=== PATIENT | male | born 1985 | race Caucasian/White ===

== ENCOUNTER 2016-06-26 16:15 | Emergency (ER) | payer MEDICAID | END 2016-06-26 20:55 | disposition home or self-care (01) | LOC: D.ER 16:15 | DX: F07.81 Postconcussional syndrome (principal); S16.1XXA Strain of muscle, fascia and tendon at neck level, initial encounter; Y04.2XXA Assault by strike against or bumped into by another person, initial encounter; Y93.89 Activity, other specified; Y92.89 Other specified places as the place of occurrence of the external cause; F41.9 Anxiety disorder, unspecified; F25.9 Schizoaffective disorder, unspecified; F31.9 Bipolar disorder, unspecified; F44.81 Dissociative identity disorder; F42.9 Obsessive-compulsive disorder, unspecified; F43.10 Post-traumatic stress disorder, unspecified ==

== ENCOUNTER 2016-07-16 11:59 | Day surgery (SDC) | payer MEDICAID ==
[~2016-07-16] VITALS: Ht 177.8 cm; Wt 70.5 kg
[2016-07-16] MEDS ORDERED: DESMOPRESSIN A0.1 MG PO (13:36)
[2016-07-16] MEDS ORDERED: NEURONTIN 300300 MG (13:36)
[2016-07-16 13:37] LABS: HEMATOCRIT 44.2 % (42.0-54.0); HEMOGLOBIN 14.4 g/dL (13.5-17.5); MCH 30.6 pg (26.0-34.0); MCHC 32.6 g/dL (31.0-37.0); MEAN PLATELET VOLUME 9.9 fL (7.4-10.4); RBC 4.7 10x6/uL (4.20-6.10); RDW 13.1 % (11.5-14.5); WBC 5.8 10x3/uL (4.8-10.8)
[2016-07-16] MEDS ORDERED: REXULTI1 MG PO (13:37)
[2016-07-16] MEDS ORDERED: TOPAMAX25 MG PO (13:37)
[2016-07-16] MEDS ORDERED: REMERON30 MG PO (13:37)
[2016-07-16] MEDS ORDERED: LAMICTAL25 MG PO (13:38)
[2016-07-16 13:58] VITALS: BP 108/67; Ht 177.8 cm; Wt 70.5 kg
--- NOTE | 2016-07-16 15:18 | NUR ---
1330 PATIENT STATES DOES NOT FEEL WELL, STATES PROBLEMS WITH LOW BLLOD SUGAR SOMETIMES,IV STARTED AND BLOOD SUGAR CHECKED. BLOOD SUGAR AT 85, REPORTED TO ANESTHESIA WITHOUT ORDERS NOTED. LR INFUSING . 1345 PATIENT STATES FEELS BETTER NOW. INFORMED ANESTHESIA THAT PT STATES DRANK 1/[address] SARAVIA AT 11AM. TO HOLD PATIENT FOR EGD TILL 4HOURS. INFORMED PATIENT. HE IS RESTING NOW. FEELING BETTER. 1430 CHECKED ON PATIENT HE STATES FEELS OK. 1500 PATIENT CALLED OUT STATES THAT HE FEELS FUNNY. STATES THINKS BLOOD SUGAR LOW. CHECK IT IS 95%. BP IS OKAY AND TEMP IN ROOM IS HIGH, DECREASED AND WILL MONITOR PATIENT.
--- NOTE | 2016-07-16 17:00 | NUR ---
1700--IV DC'D, PT UP TO DRESS AT THIS TIME. PAOLA HATHAWAY
--- NOTE | 2016-07-16 17:24 | NUR ---
1710--DISCHARGE INSTRUCTIONS GIVEN, PT VERBALIZES UNDERSTANDING. PT OFF UNIT VIA AGNES. PAOLA HATHAWAY
--- NOTE | 2016-07-17 12:18 | OP ---
PATIENT NAME: BUTCH CHEUNG MEDICAL RECORD: [id number] :81 LOCATION:[facility] ADMISSION DATE: SURGEON: JONNY DE SOUZA DO DATE OF OPERATION: 07/16/2016 PROCEDURE: EGD with biopsies. INDICATIONS FOR PROCEDURE: Epigastric abdominal pain, diarrhea, heartburn, nausea and vomiting. SCOPE: [employer] video gastroscope. MEDICATIONS: Propofol 150 mg IV per anesthesia. ESTIMATED BLOOD LOSS: Minimal. FINDINGS: Informed consent was given. The patient was made comfortable with the above medication. After reaching an adequate level of sedation by slow IV push, the patient was placed on his left side. The scope was advanced under direct visualization through the mouth to the second portion of the duodenum. The upper, middle, and distal thirds of the esophagus appeared normal. At the GE junction, there was evidence of moderate LA class B reflux induced esophagitis. Scope was advanced through the GE junction and retroflexed to view the cardia which appeared normal. The fundus and body of the stomach appeared normal. In the antrum and prepyloric region, there was erythema and granularity consistent with possible gastritis. Multiple random biopsies were taken to submit for histology and to rule out H. pylori. The endoscope was advanced through the pylorus into the duodenum where the bulb and second portion of the duodenum appeared normal. Random biopsies were taken in both the bulb and second portion of the duodenum to submit for histology. The scope was then withdrawn from the patient. The patient tolerated the procedure well and there were no complications. ESTIMATED BLOOD LOSS: Minimal. IMPRESSION: 1. Moderate LA class B reflux induced esophagitis. 2. Erythema and granularity of the stomach consistent with gastritis with biopsies taken. 3. Normal duodenum. Biopsies taken. PLAN AND RECOMMENDATIONS: 1. Discharge home when recovery parameters are met. 2. Continue current diet. 3. Continue current medications. 4. Trial of Protonix 40 mg daily in the a.m. for 8 weeks. 5. We will monitor for symptom changes and respond with medications. 6. Follow up biopsy specimen results. 7. Follow up in GI clinic as needed. TRANSINT:[id number] Voice Confirmation ID: [id number] DOCUMENT ID: [id number] OPERATIVE REPORT [id number] BUTCH CHEUNG JONNY DE SOUZA DO at 9037 CC: [id number] DICTATION DATE: 07/16/16 1615 PREVENTIVE MEDICINE OFFICER: 07/17/16 0036 [facility] 07/16/16 [place] [id number] [place] [id number]
== END 2016-07-16 17:10 | disposition home or self-care (01) ==
LOC: D.OPS 11:59
PROVIDERS: Anesthesiology
DX: R10.13 Epigastric pain (principal); R19.7 Diarrhea, unspecified; R11.2 Nausea with vomiting, unspecified; K21.0 Gastro-esophageal reflux disease with esophagitis; F17.200 Nicotine dependence, unspecified, uncomplicated; J45.909 Unspecified asthma, uncomplicated; K21.9 Gastro-esophageal reflux disease without esophagitis; Z01.812 Encounter for preprocedural laboratory examination

== ENCOUNTER 2016-11-22 09:18 | Emergency (ER) | payer MEDICAID | END 2016-11-22 12:37 | disposition home or self-care (01) | LOC: D.ER 09:18 | DX: R53.1 Weakness (principal); R10.9 Unspecified abdominal pain; E87.6 Hypokalemia; E87.0 Hyperosmolality and hypernatremia; F42.9 Obsessive-compulsive disorder, unspecified; F43.10 Post-traumatic stress disorder, unspecified; Z86.59 Personal history of other mental and behavioral disorders; F17.200 Nicotine dependence, unspecified, uncomplicated ==

== ENCOUNTER 2016-11-23 15:34 | Emergency (ER) | payer MEDICAID | END 2016-11-23 18:20 | disposition home or self-care (01) | LOC: D.ER 15:34 | DX: E86.0 Dehydration (principal); R55 Syncope and collapse; Z86.59 Personal history of other mental and behavioral disorders ==

== ENCOUNTER 2016-11-24 09:01 | Emergency (ER) | payer MEDICAID | END 2016-11-24 12:24 | disposition home or self-care (01) | LOC: D.ER 09:01 | DX: R56.9 Unspecified convulsions (principal) ==

== ENCOUNTER 2016-11-26 18:51 | Emergency (ER) | payer MEDICAID ==
[2016-07-16 13:58] VITALS: BMI 22.2
[~2016-11-26 18:51] MED LIST: DESMOPRESSIN A0.1 MG PO; LAMICTAL25 MG PO; NEURONTIN 300300 MG; REMERON30 MG PO; REXULTI1 MG PO; TOPAMAX25 MG PO
== END 2016-11-26 23:44 | disposition home or self-care (01) ==
LOC: D.ER 18:51
DX: F41.9 Anxiety disorder, unspecified (principal); Z86.59 Personal history of other mental and behavioral disorders; Z86.69 Personal history of other diseases of the nervous system and sense organs; F17.200 Nicotine dependence, unspecified, uncomplicated

== ENCOUNTER 2016-12-02 09:13 | Emergency (ER) | payer MEDICAID ==
[2016-07-16 13:58] VITALS: BMI 22.2
[2016-12-02 09:48] LABS: BASOPHILS 0.3 % (0-2); HEMATOCRIT 44.6 % (42.0-54.0); HEMOGLOBIN 15.1 g/dL (13.5-17.5); IMMATURE GRANULOCYTES 0.2 % (0-5); LYMPHOCYTES 18.5 % (15-50); MCH 30.8 pg (26.0-34.0); MCHC 33.9 g/dL (31.0-37.0); MEAN PLATELET VOLUME 9.1 fL (7.4-10.4); MONOCYTES 5.6 % (2-11); NEUTROPHILS 73.4 % (40-80); PLATELET COUNT 207 10x3/uL (130-400); RDW 13.9 % (11.5-14.5); WBC 6.6 10x3/uL (4.8-10.8)
[2016-12-02 10:01] LABS: UDS - AMPHET NEGATIVE QUAL (NEGATIVE); UDS - BARB NEGATIVE QUAL (NEGATIVE); UDS - BENZO NEGATIVE QUAL (NEGATIVE); UDS - COCAINE NEGATIVE QUAL (NEGATIVE); UDS - METH NEGATIVE QUAL (NEGATIVE); UDS - OPIATE NEGATIVE QUAL (NEGATIVE); UDS - PCP NEGATIVE QUAL (NEGATIVE); UDS - THC NEGATIVE QUAL (NEGATIVE)
[2016-12-02 10:09] LABS: ALBUMIN 4.3 g/dL (3.4-5.0); ANION GAP 12.4 mmol/L (8-16); BILIRUBIN - TOTAL 0.26 mg/dL (0.2-1.3); CARBON DIOXIDE 25.5 mmol/L (21.0-32.0); CREATININE - SERUM 1.2 mg/dL (0.6-1.3); POTASSIUM - SERUM 3.9 mmol/L (3.5-5.1); PROTEIN - SERUM 7.7 g/dL (6.4-8.2)
[2016-12-02 10:10] LABS: APPEARANCE HAZY (CLEAR); COLOR YELLOW (YELLOW); SPECIFIC GRAVITY 1.005 (1.005-1.020)
[2016-12-02 10:11] LABS: BILIRUBIN NEGATIVE (NEGATIVE); GLUCOSE NEGATIVE (NEGATIVE); KETONE NEGATIVE (NEGATIVE); LEUKOCYTE ESTERASE NEGATIVE (NEGATIVE); NITRITE NEGATIVE (NEGATIVE); PROTEIN NEGATIVE (NEGATIVE); UROBILINOGEN NORMAL (NORMAL)
== END 2016-12-02 11:20 | disposition home or self-care (01) ==
LOC: D.ER 09:13
PROVIDERS: Emergency Medicine
DX: R56.9 Unspecified convulsions (principal); F17.200 Nicotine dependence, unspecified, uncomplicated

== ENCOUNTER 2016-12-03 06:04 | Emergency (ER) | payer MEDICAID ==
[2016-07-16 13:58] VITALS: BMI 22.2
[2016-12-03 06:29] LABS: BASOPHILS 0.5 % (0-2); EOSINOPHILS 3.1 % (0-7); HEMATOCRIT 45.6 % (42.0-54.0); HEMOGLOBIN 15.4 g/dL (13.5-17.5); IMMATURE GRANULOCYTES 0.2 % (0-5); LYMPHOCYTES 31.8 % (15-50); MCH 30.6 pg (26.0-34.0); MCHC 33.8 g/dL (31.0-37.0); MCV 90.5 fL (80.0-100.0); MEAN PLATELET VOLUME 8.9 fL (7.4-10.4); MONOCYTES 10.6 % (2-11); NEUTROPHILS 53.8 % (40-80); PLATELET COUNT 216 10x3/uL (130-400); RBC 5.04 10x6/uL (4.20-6.10); WBC 5.9 10x3/uL (4.8-10.8)
[2016-12-03 06:37] LABS: APPEARANCE CLEAR (CLEAR); BILIRUBIN NEGATIVE (NEGATIVE); COLOR DK YELLOW (YELLOW); GLUCOSE NEGATIVE (NEGATIVE); KETONE NEGATIVE (NEGATIVE); LEUKOCYTE ESTERASE NEGATIVE (NEGATIVE); NITRITE NEGATIVE (NEGATIVE); PROTEIN NEGATIVE (NEGATIVE); SPECIFIC GRAVITY 1.025 (1.005-1.020); UROBILINOGEN NORMAL (NORMAL)
[2016-12-03 06:39] LABS: UDS - AMPHET NEGATIVE QUAL (NEGATIVE); UDS - BARB NEGATIVE QUAL (NEGATIVE); UDS - BENZO NEGATIVE QUAL (NEGATIVE); UDS - COCAINE NEGATIVE QUAL (NEGATIVE); UDS - METH NEGATIVE QUAL (NEGATIVE); UDS - OPIATE NEGATIVE QUAL (NEGATIVE); UDS - PCP NEGATIVE QUAL (NEGATIVE); UDS - THC NEGATIVE QUAL (NEGATIVE)
[2016-12-03 06:47] LABS: ALBUMIN 4.4 g/dL (3.4-5.0); ANION GAP 15.8 mmol/L (8-16); BILIRUBIN - TOTAL 0.51 mg/dL (0.2-1.3); CALCIUM 9.3 mg/dL (8.5-10.1); CARBON DIOXIDE 22.6 mmol/L (21.0-32.0); CREATININE - SERUM 1.2 mg/dL (0.6-1.3); POTASSIUM - SERUM 3.4 mmol/L (3.5-5.1); PROTEIN - SERUM 7.7 g/dL (6.4-8.2)
== END 2016-12-03 08:04 | disposition home or self-care (01) ==
LOC: D.ER 06:04
PROVIDERS: Family Medicine
DX: R56.9 Unspecified convulsions (principal); F17.200 Nicotine dependence, unspecified, uncomplicated

== ENCOUNTER 2016-12-03 22:43 | Emergency (ER) | payer MEDICAID ==
[2016-07-16 13:58] VITALS: BMI 22.2
== END 2016-12-04 03:09 | disposition home or self-care (01) ==
LOC: D.ER 22:43
DX: F41.9 Anxiety disorder, unspecified (principal); F41.0 Panic disorder [episodic paroxysmal anxiety]; G40.909 Epilepsy, unspecified, not intractable, without status epilepticus; F42.9 Obsessive-compulsive disorder, unspecified; F17.200 Nicotine dependence, unspecified, uncomplicated

== ENCOUNTER 2016-12-07 17:01 | Emergency (ER) | payer MEDICAID ==
[2016-07-16 13:58] VITALS: BMI 22.2
== END 2016-12-07 17:52 | disposition home or self-care (01) ==
LOC: D.ER 17:01
DX: Z03.89 Encounter for observation for other suspected diseases and conditions ruled out (principal)

== ENCOUNTER → 2016-12-10 07:17 | Outpatient (CLI) | payer MEDICAID ==
[2016-07-16 13:58] VITALS: BMI 22.2
[~2016-12-10 07:17] MED LIST changes: +ABILIFY10 MG PO; +ATARAX 25 MG TA25 MG PO; +BENZTROPINE MESY1 MG PO; +PAXIL20 MG PO; +SEROQUEL300 MG PO
== END | disposition home or self-care (01) ==
LOC: D.RAD 11-21 08:00
DX: R10.13 Epigastric pain (principal); R11.2 Nausea with vomiting, unspecified

== ENCOUNTER 2016-12-10 19:16 | Emergency (ER) | payer MEDICAID ==
[2016-07-16 13:58] VITALS: BMI 22.2
[~2016-12-10 19:16] MED LIST changes: -ABILIFY10 MG PO; -ATARAX 25 MG TA25 MG PO; -BENZTROPINE MESY1 MG PO; -PAXIL20 MG PO; -SEROQUEL300 MG PO
[2016-12-10 20:25] LABS: UDS - AMPHET NEGATIVE QUAL (NEGATIVE); UDS - BARB NEGATIVE QUAL (NEGATIVE); UDS - BENZO NEGATIVE QUAL (NEGATIVE); UDS - COCAINE NEGATIVE QUAL (NEGATIVE); UDS - OPIATE NEGATIVE QUAL (NEGATIVE); UDS - PCP NEGATIVE QUAL (NEGATIVE); UDS - THC POSITIVE QUAL (NEGATIVE)
== END 2016-12-10 23:09 | disposition home or self-care (01) ==
LOC: D.ER 19:16
PROVIDERS: Emergency Medicine
DX: F41.9 Anxiety disorder, unspecified (principal); F17.200 Nicotine dependence, unspecified, uncomplicated

== ENCOUNTER → 2016-12-18 12:35 | Outpatient (CLI) | payer MEDICAID ==
[2016-07-16 13:58] VITALS: BMI 22.2
[~2016-12-18 12:35] MED LIST changes: +ABILIFY10 MG PO; +ATARAX 25 MG TA25 MG PO; +BENZTROPINE MESY1 MG PO; +PAXIL20 MG PO; +SEROQUEL300 MG PO
== END | disposition home or self-care (01) ==
LOC: D.NM 11-24 14:30
DX: R12 Heartburn (principal); R11.2 Nausea with vomiting, unspecified; R10.9 Unspecified abdominal pain

== ENCOUNTER 2016-12-22 10:32 | Day surgery (SDC) | payer MEDICAID ==
[~2016-12-22 10:32] MED LIST changes: -ABILIFY10 MG PO; -ATARAX 25 MG TA25 MG PO; -BENZTROPINE MESY1 MG PO; -PAXIL20 MG PO; -SEROQUEL300 MG PO
[2016-12-22 11:34] VITALS: BP 99/62; BMI 21.5
[2016-12-22] MEDS ORDERED: BENZTROPINE MESY1 MG PO (11:46)
[2016-12-22] MEDS ORDERED: SEROQUEL300 MG PO (11:48)
[2016-12-22] MEDS ORDERED: ABILIFY10 MG PO (11:48)
[2016-12-22] MEDS ORDERED: PAXIL20 MG PO (11:49)
[2016-12-22] MEDS ORDERED: ATARAX 25 MG TA25 MG PO (11:49)
[2016-12-22 12:24] LABS: BASOPHILS 0.6 % (0-2); EOSINOPHILS 4.3 % (0-7); HEMATOCRIT 46.6 % (42.0-54.0); HEMOGLOBIN 15.4 g/dL (13.5-17.5); LYMPHOCYTES 33.7 % (15-50); MCH 30.1 pg (26.0-34.0); MCV 91.2 fL (80.0-100.0); MEAN PLATELET VOLUME 9.4 fL (7.4-10.4); MONOCYTES 6.9 % (2-11); NEUTROPHILS 54.5 % (40-80); PLATELET COUNT 253 10x3/uL (130-400); RBC 5.11 10x6/uL (4.20-6.10); RDW 13.4 % (11.5-14.5); WBC 3.5 10x3/uL (4.8-10.8)
[2016-12-22 12:41] LABS: ANION GAP 17.3 mmol/L (8-16); CALCIUM 9.5 mg/dL (8.5-10.1); CARBON DIOXIDE 24.6 mmol/L (21.0-32.0); CREATININE - SERUM 1.2 mg/dL (0.6-1.3); POTASSIUM - SERUM 3.9 mmol/L (3.5-5.1)
--- NOTE | 2016-12-22 14:48 | NUR ---
PT TOLERATED FULL LIQ DIET. PASSING FLATUS.
--- NOTE | 2016-12-22 14:57 | NUR ---
IV D/C'D CATH INTACT.
--- NOTE | 2016-12-22 15:14 | NUR ---
D/C INSTRUCTIONS GIVEN TO PT. COPIES OF ALL GIVEN. D/C'D AMBULATORY ACCOMPANIED BY STAFF, TO PRIVATE CAR.
--- NOTE | 2016-12-24 14:40 | OP ---
PATIENT NAME: BUTCH CHEUNG MEDICAL RECORD: [id number] :81 [facility] DATE: SURGEON: JONNY DE SOUZA DO DATE OF OPERATION: 12/22/2016 PROCEDURE: Colonoscopy. INDICATIONS FOR PROCEDURE: Abdominal pain which is generalized, generalized abdominal swelling, and change in bowel habits. SCOPE: Olympus video pediatric colonoscope. MEDICATIONS: Propofol 400 mg IV per anesthesia. WITHDRAWAL TIME: 7 minutes. ESTIMATED BLOOD LOSS: None. COMPLICATIONS: None. FINDINGS: Informed consent was given. The patient was made comfortable with the above medication. After reaching an adequate level of sedation by slow IV push, the patient was placed on his left side. A digital rectal examination was performed and was normal. The endoscope was then advanced under direct visualization through the rectum to the terminal ileum. The scope was slowly withdrawn and mucosa was carefully examined. Prep quality was excellent. There were no polyps, other lesions, or diverticula visualized on this examination. Retroflexion was performed in the rectum with a normal-appearing rectal wall. The scope was withdrawn from the patient. The patient tolerated the procedure well. There were no complications. IMPRESSION: Normal colonoscopy to terminal ileum. PLAN AND RECOMMENDATIONS: 1. Discharge home when recovery parameters are met. 2. Recall colonoscopy at age 48 for screening purposes. 3. Trial of Reglan 5 mg a.c. and at bedtime for severe gastroparesis. 4. Two tablespoons of Metamucil supplement daily to maintain more regular bowel movements. 5. Follow up in GI clinic as needed. TRANSINT:[id number] Voice Confirmation ID: [id number] DOCUMENT ID: [id number] JONNY DE SOUZA DO at 1440 CC: [id number] DICTATION DATE: 12/22/16 1400 MATERIAL HANDLER 1ST SHIFT: 12/22/16 1420 [facility] 12/22/16 [place] [id number] [place] [id number]
== END 2016-12-22 15:19 | disposition home or self-care (01) ==
LOC: D.OPS 10:32
PROVIDERS: Anesthesiology
DX: R10.84 Generalized abdominal pain (principal); R19.4 Change in bowel habit; F17.200 Nicotine dependence, unspecified, uncomplicated; J45.909 Unspecified asthma, uncomplicated; Z01.812 Encounter for preprocedural laboratory examination

== ENCOUNTER 2016-12-23 12:31 | Emergency (ER) | payer MEDICAID ==
[2016-12-22 11:34] VITALS: BMI 21.5
[~2016-12-23 12:31] MED LIST changes: +ABILIFY10 MG PO; +ATARAX 25 MG TA25 MG PO; +BENZTROPINE MESY1 MG PO; +PAXIL20 MG PO; +SEROQUEL300 MG PO
[2016-12-23 14:03] LABS: BASOPHILS 0.8 % (0-2); EOSINOPHILS 3.9 % (0-7); HEMATOCRIT 41.6 % (42.0-54.0); HEMOGLOBIN 13.8 g/dL (13.5-17.5); LYMPHOCYTES 30.7 % (15-50); MCH 30.1 pg (26.0-34.0); MCHC 33.2 g/dL (31.0-37.0); MCV 90.8 fL (80.0-100.0); MEAN PLATELET VOLUME 8.9 fL (7.4-10.4); MONOCYTES 5.7 % (2-11); NEUTROPHILS 58.9 % (40-80); PLATELET COUNT 207 10x3/uL (130-400); RBC 4.58 10x6/uL (4.20-6.10); RDW 13.4 % (11.5-14.5); WBC 3.8 10x3/uL (4.8-10.8)
[2016-12-23 14:20] LABS: ALBUMIN 3.9 g/dL (3.4-5.0); ALKALINE PHOSPHATASE 89 U/L (46-116); ALT (SGPT) 19 U/L (10-68); AMYLASE - SERUM 84 U/L (25-115); BILIRUBIN - TOTAL 0.44 mg/dL (0.2-1.3); CALC OSMOLALITY 284 mosm/kg (275-300); CALCIUM 8.9 mg/dL (8.5-10.1); CARBON DIOXIDE 23.9 mmol/L (21.0-32.0); CHLORIDE - SERUM 107 mmol/L (98-107); CREATININE - SERUM 1.1 mg/dL (0.6-1.3); GLUCOSE 80 mg/dL (74-106); LIPASE 209 U/L (73-393); POTASSIUM - SERUM 3.6 mmol/L (3.5-5.1); SODIUM 142 mmol/L (136-145); eGFR NON AFRICAN AMERICAN 82 mL/min (90-120)
[2016-12-23 14:21] LABS: UREA NITROGEN 22 mg/dL (7-18)
== END 2016-12-23 15:56 | disposition home or self-care (01) ==
LOC: D.ER 12:31
PROVIDERS: Family Medicine
DX: F41.9 Anxiety disorder, unspecified (principal); K29.00 Acute gastritis without bleeding; F17.200 Nicotine dependence, unspecified, uncomplicated

== ENCOUNTER 2016-12-28 16:59 | Emergency (ER) | payer MEDICAID | END 2016-12-28 18:16 | disposition home or self-care (01) | LOC: D.ER 16:59 | DX: F41.9 Anxiety disorder, unspecified (principal) ==

== ENCOUNTER 2017-01-04 08:33 | Emergency (ER) | payer MEDICAID | END 2017-01-04 09:15 | disposition home or self-care (01) | LOC: D.ER 08:33 | DX: J06.9 Acute upper respiratory infection, unspecified (principal); F17.200 Nicotine dependence, unspecified, uncomplicated ==

== ENCOUNTER 2017-01-09 09:35 | Emergency (ER) | payer MEDICAID | END 2017-01-09 14:07 | disposition home or self-care (01) | LOC: D.ER 09:35 | DX: G40.909 Epilepsy, unspecified, not intractable, without status epilepticus (principal); F17.200 Nicotine dependence, unspecified, uncomplicated ==

== ENCOUNTER 2017-01-13 09:54 | Emergency (ER) | payer MEDICAID | END 2017-01-13 13:10 | disposition home or self-care (01) | LOC: D.ER 09:54 | DX: M25.512 Pain in left shoulder (principal); S49.92XA Unspecified injury of left shoulder and upper arm, initial encounter; W01.0XXA Fall on same level from slipping, tripping and stumbling without subsequent striking against object, initial encounter; Y93.89 Activity, other specified; Y92.89 Other specified places as the place of occurrence of the external cause; F17.200 Nicotine dependence, unspecified, uncomplicated ==

== ENCOUNTER 2017-02-13 21:18 | Emergency (ER) | payer MEDICAID ==
[2017-02-13 21:56] LABS: BASOPHILS 0.4 % (0-2); EOSINOPHILS 3.8 % (0-7); HEMATOCRIT 36.9 % (42.0-54.0); HEMOGLOBIN 12.3 g/dL (13.5-17.5); IMMATURE GRANULOCYTES 0.2 % (0-5); LYMPHOCYTES 36.6 % (15-50); MCH 29.9 pg (26.0-34.0); MCHC 33.3 g/dL (31.0-37.0); MCV 89.8 fL (80.0-100.0); MEAN PLATELET VOLUME 9.3 fL (7.4-10.4); MONOCYTES 6.5 % (2-11); NEUTROPHILS 52.5 % (40-80); RBC 4.11 10x6/uL (4.20-6.10); RDW 14.1 % (11.5-14.5); WBC 5.1 10x3/uL (4.8-10.8)
[2017-02-13 21:57] LABS: PLATELET COUNT 135 10x3/uL (130-400)
[2017-02-13 22:05] LABS: APPEARANCE CLEAR (CLEAR); BILIRUBIN NEGATIVE (NEGATIVE); COLOR YELLOW (YELLOW); GLUCOSE NEGATIVE (NEGATIVE); KETONE NEGATIVE (NEGATIVE); NITRITE NEGATIVE (NEGATIVE); PROTEIN NEGATIVE (NEGATIVE); UROBILINOGEN NORMAL (NORMAL)
== END 2017-02-13 22:16 | disposition home or self-care (01) ==
LOC: D.ER 21:18
PROVIDERS: Emergency Medicine
DX: K59.00 Constipation, unspecified (principal); G40.909 Epilepsy, unspecified, not intractable, without status epilepticus; F17.200 Nicotine dependence, unspecified, uncomplicated

== ENCOUNTER 2017-02-19 09:19 | Emergency (ER) | payer MEDICAID ==
[2017-02-19 09:58] LABS: APPEARANCE CLEAR (CLEAR); BILIRUBIN NEGATIVE (NEGATIVE); COLOR YELLOW (YELLOW); GLUCOSE NEGATIVE (NEGATIVE); KETONE NEGATIVE (NEGATIVE); NITRITE NEGATIVE (NEGATIVE); PROTEIN NEGATIVE (NEGATIVE); SPECIFIC GRAVITY 1.015 (1.005-1.020); UROBILINOGEN NORMAL (NORMAL)
[2017-02-19 10:09] LABS: BASOPHILS 0.2 % (0-2); EOSINOPHILS 3.7 % (0-7); HEMATOCRIT 38.1 % (42.0-54.0); HEMOGLOBIN 12.6 g/dL (13.5-17.5); LYMPHOCYTES 21.5 % (15-50); MCH 29.8 pg (26.0-34.0); MCHC 33.1 g/dL (31.0-37.0); MCV 90.1 fL (80.0-100.0); MEAN PLATELET VOLUME 9.3 fL (7.4-10.4); MONOCYTES 6.2 % (2-11); NEUTROPHILS 68.4 % (40-80); RBC 4.23 10x6/uL (4.20-6.10); RDW 14.3 % (11.5-14.5); WBC 5.6 10x3/uL (4.8-10.8)
[2017-02-19 10:10] LABS: PLATELET COUNT 202 10x3/uL (130-400)
[2017-02-19 10:35] LABS: ALBUMIN 3.6 g/dL (3.4-5.0); ALKALINE PHOSPHATASE 82 U/L (46-116); ALT (SGPT) 19 U/L (10-68); BILIRUBIN - TOTAL 0.19 mg/dL (0.2-1.3); CALC OSMOLALITY 284 mosm/kg (275-300); CALCIUM 8.7 mg/dL (8.5-10.1); CARBON DIOXIDE 23.5 mmol/L (21.0-32.0); CHLORIDE - SERUM 109 mmol/L (98-107); GLUCOSE 95 mg/dL (74-106); POTASSIUM - SERUM 3.5 mmol/L (3.5-5.1); PROTEIN - SERUM 6.5 g/dL (6.4-8.2); SODIUM 142 mmol/L (136-145); UREA NITROGEN 17 mg/dL (7-18); eGFR NON AFRICAN AMERICAN > 90 mL/min (90-120)
[2017-02-19 12:00] LABS: UDS - AMPHET NEGATIVE QUAL (NEGATIVE); UDS - BARB NEGATIVE QUAL (NEGATIVE); UDS - BENZO POSITIVE QUAL (NEGATIVE); UDS - COCAINE NEGATIVE QUAL (NEGATIVE); UDS - OPIATE NEGATIVE QUAL (NEGATIVE); UDS - PCP NEGATIVE QUAL (NEGATIVE); UDS - THC NEGATIVE QUAL (NEGATIVE)
== END 2017-02-19 13:05 | disposition home or self-care (01) ==
LOC: D.ER 09:19
PROVIDERS: Emergency Medicine
DX: E86.0 Dehydration (principal); R55 Syncope and collapse; F17.200 Nicotine dependence, unspecified, uncomplicated

== ENCOUNTER 2017-02-19 21:18 | Emergency (ER) | payer MEDICAID ==
[2017-02-19 22:05] LABS: UDS - AMPHET NEGATIVE QUAL (NEGATIVE); UDS - BARB NEGATIVE QUAL (NEGATIVE); UDS - BENZO POSITIVE QUAL (NEGATIVE); UDS - COCAINE NEGATIVE QUAL (NEGATIVE); UDS - OPIATE NEGATIVE QUAL (NEGATIVE); UDS - PCP NEGATIVE QUAL (NEGATIVE); UDS - THC NEGATIVE QUAL (NEGATIVE)
[2017-02-19 22:07] LABS: BASOPHILS 0.2 % (0-2); HEMATOCRIT 35.2 % (42.0-54.0); HEMOGLOBIN 11.8 g/dL (13.5-17.5); MCHC 33.5 g/dL (31.0-37.0); MCV 89.6 fL (80.0-100.0); MEAN PLATELET VOLUME 8.9 fL (7.4-10.4); NEUTROPHILS 56.8 % (40-80); PLATELET COUNT 195 10x3/uL (130-400); RBC 3.93 10x6/uL (4.20-6.10); RDW 14.2 % (11.5-14.5)
[2017-02-19 22:10] LABS: APPEARANCE CLOUDY (CLEAR); BILIRUBIN NEGATIVE (NEGATIVE); COLOR YELLOW (YELLOW); EPITHELIAL CELLS 0-5 /hpf (0-5); GLUCOSE NEGATIVE (NEGATIVE); KETONE NEGATIVE (NEGATIVE); NITRITE NEGATIVE (NEGATIVE); PROTEIN NEGATIVE (NEGATIVE); RED CELLS - URINE 0-5 /hpf (0-5); SPECIFIC GRAVITY 1.015 (1.005-1.020); UROBILINOGEN NORMAL (NORMAL); WHITE CELLS - URINE 0-5 /hpf (0-5)
[2017-02-19 22:11] LABS: AMORPHOUS SEDIMENT <1+ /lpf (NONE SEEN); BACTERIA NONE SEEN /hpf (NONE SEEN)
[2017-02-19 22:22] LABS: ALBUMIN 3.6 g/dL (3.4-5.0); ALKALINE PHOSPHATASE 76 U/L (46-116); ALT (SGPT) 19 U/L (10-68); BILIRUBIN - TOTAL 0.23 mg/dL (0.2-1.3); CALC OSMOLALITY 285 mosm/kg (275-300); CALCIUM 8.1 mg/dL (8.5-10.1); CARBON DIOXIDE 23.3 mmol/L (21.0-32.0); CHLORIDE - SERUM 111 mmol/L (98-107); GLUCOSE 94 mg/dL (74-106); POTASSIUM - SERUM 3.4 mmol/L (3.5-5.1); PROTEIN - SERUM 6.3 g/dL (6.4-8.2); SODIUM 143 mmol/L (136-145); UREA NITROGEN 15 mg/dL (7-18); eGFR NON AFRICAN AMERICAN > 90 mL/min (90-120)
== END 2017-02-19 23:45 | disposition short-term general hospital (02) ==
LOC: D.ER 21:18
PROVIDERS: Family Medicine
DX: F33.9 Major depressive disorder, recurrent, unspecified (principal); R53.83 Other fatigue

== ENCOUNTER 2017-02-26 18:12 | Emergency (ER) | payer MEDICAID | END 2017-02-26 20:06 | disposition home or self-care (01) | LOC: D.ER 18:12 | DX: F41.9 Anxiety disorder, unspecified (principal); Z86.69 Personal history of other diseases of the nervous system and sense organs ==

== ENCOUNTER 2019-09-07 19:22 | Emergency (ER) | payer OTHER ==
[~2019-09-07] VITALS: Ht 177.8 cm; Wt 92.7 kg
[~2019-09-07 19:22] MED LIST changes: +TOPAMAX100 MG PO; -TOPAMAX25 MG PO
[2019-09-07 19:36] VITALS: Ht 177.8 cm; Wt 92.7 kg
[2019-09-07] MEDS ORDERED: ZOLOFT25 MG PO (19:43)
[2019-09-07] MEDS ORDERED: TRAZODONE HCL150 MG PO (19:43)
[2019-09-07] MEDS ORDERED: ZOFRAN ODT4 MG/UDTAB PO (19:43)
[2019-09-07] MEDS ORDERED: VITAMIN D5000 UNI1 PO (19:44)
[2019-09-07 20:10] LABS: BASOPHILS 0.7 % (0-2); EOSINOPHILS 3.6 % (0-7); HEMATOCRIT 44.1 % (42.0-54.0); HEMOGLOBIN 14.3 g/dL (13.5-17.5); IMMATURE GRANULOCYTES 0.2 % (0-5); LYMPHOCYTES 34.8 % (15-50); MCH 29.4 pg (26.0-34.0); MCHC 32.4 g/dL (31.0-37.0); MCV 90.6 fL (80.0-100.0); MEAN PLATELET VOLUME 8.7 fL (7.4-10.4); MONOCYTES 6.7 % (2-11); RBC 4.87 10x6/uL (4.20-6.10); RDW 14.3 % (11.5-14.5); WBC 5.6 10x3/uL (4.8-10.8)
[2019-09-07 20:11] LABS: PLATELET COUNT 235 10x3/uL (130-400)
[2019-09-07 20:21] LABS: ANION GAP 12.6 mmol/L (8-16); CALCIUM 9.1 mg/dL (8.5-10.1); CREATININE - SERUM 1.3 mg/dL (0.6-1.3); POTASSIUM - SERUM 3.6 mmol/L (3.5-5.1)
[2019-09-07 20:24] LABS: BILIRUBIN NEGATIVE (NEGATIVE); GLUCOSE NEGATIVE (NEGATIVE); KETONE NEGATIVE (NEGATIVE); NITRITE NEGATIVE (NEGATIVE); SPECIFIC GRAVITY 1.015 (1.005-1.020); UROBILINOGEN NORMAL (NORMAL)
[2019-09-07 20:35] LABS: UDS - AMPHET NEGATIVE QUAL (NEGATIVE); UDS - BARB NEGATIVE QUAL (NEGATIVE); UDS - BENZO NEGATIVE QUAL (NEGATIVE); UDS - COCAINE NEGATIVE QUAL (NEGATIVE); UDS - OPIATE NEGATIVE QUAL (NEGATIVE); UDS - PCP NEGATIVE QUAL (NEGATIVE); UDS - THC NEGATIVE QUAL (NEGATIVE)
[2019-09-07 20:37] LABS: ALBUMIN 4.3 g/dL (3.4-5.0); BILIRUBIN - TOTAL 0.51 mg/dL (0.2-1.3); PROTEIN - SERUM 7.8 g/dL (6.4-8.2); THYROID STIMULATING HORMONE 1.1 uIU/mL (0.36-3.74)
--- NOTE | 2019-09-07 21:13 | NUR ---
DR. TOM NOTIFIED AND REVIEWED PT'S BEHAVIOR AND ASSESSMENT RESULTS. PT IS LOW RISK PER DR. TOM. DR. TOM STATED TO GIVE RESOURCES TO PT AT TIME OF DISCHARGE. NO FURTHER ORDERS AT THIS TIME. RESOURCES REVIEWED WITH PT AND HE VERBALIZED UNDERSTANDING.
[2019-09-07] MEDS ORDERED: PHENERGAN25 M1 PO (22:00)
[2019-09-07 23:15] VITALS: BP 124/76
== END 2019-09-07 23:15 | disposition home or self-care (01) ==
LOC: D.ER 19:22
PROVIDERS: Family Medicine
DX: R11.2 Nausea with vomiting, unspecified (principal); J45.909 Unspecified asthma, uncomplicated; Z72.0 Tobacco use; R19.7 Diarrhea, unspecified; R10.9 Unspecified abdominal pain

== ENCOUNTER 2019-09-10 05:38 | Emergency (ER) | payer OTHER ==
[~2019-09-10 05:38] MED LIST changes: +PHENERGAN25 M1 PO; +TRAZODONE HCL150 MG PO; +VITAMIN D5000 UNI1 PO; +ZOFRAN ODT4 MG/UDTAB PO; +ZOLOFT25 MG PO
[2019-09-10 05:42] VITALS: Ht 177.8 cm
[2019-09-10] MEDS ORDERED: GABAPENTIN300 MG PO (05:47)
[2019-09-10] MEDS ORDERED: KEPPRA750 MG PO (05:48)
[2019-09-10] MEDS ORDERED: VITAMIN D2 (05:50)
[2019-09-10] MEDS ORDERED: LEXAPRO20 MG PO (05:52)
[2019-09-10] MEDS ORDERED: AMITRIPTYLINE H50 MG PO (05:52)
[2019-09-10] MEDS ORDERED: LIPITOR20 MG PO (05:53)
[2019-09-10 06:04] LABS: BASOPHILS 0.6 % (0-2); EOSINOPHILS 3.9 % (0-7); HEMATOCRIT 41.7 % (42.0-54.0); HEMOGLOBIN 13.3 g/dL (13.5-17.5); IMMATURE GRANULOCYTES 0.1 % (0-5); LYMPHOCYTES 32.1 % (15-50); MCHC 31.9 g/dL (31.0-37.0); MEAN PLATELET VOLUME 8.9 fL (7.4-10.4); MONOCYTES 9.7 % (2-11); NEUTROPHILS 53.6 % (40-80); PLATELET COUNT 239 10x3/uL (130-400); RBC 4.58 10x6/uL (4.20-6.10); RDW 14.7 % (11.5-14.5); WBC 6.7 10x3/uL (4.8-10.8)
[2019-09-10 06:15] LABS: ANION GAP 14.8 mmol/L (8-16); CALCIUM 8.7 mg/dL (8.5-10.1); CARBON DIOXIDE 21.6 mmol/L (21.0-32.0); CREATININE - SERUM 1.5 mg/dL (0.6-1.3); POTASSIUM - SERUM 3.4 mmol/L (3.5-5.1)
[2019-09-10 06:24] LABS: ALBUMIN 4.2 g/dL (3.4-5.0); BILIRUBIN - TOTAL 0.45 mg/dL (0.2-1.3); MAGNESIUM - SERUM 2.2 mg/dL (1.8-2.4); PROTEIN - SERUM 7.4 g/dL (6.4-8.2)
[2019-09-10 06:56] LABS: BILIRUBIN NEGATIVE (NEGATIVE); GLUCOSE NEGATIVE (NEGATIVE); KETONE NEGATIVE (NEGATIVE); NITRITE NEGATIVE (NEGATIVE); UROBILINOGEN NORMAL (NORMAL)
[2019-09-10 07:05] LABS: UDS - AMPHET NEGATIVE QUAL (NEGATIVE); UDS - BARB NEGATIVE QUAL (NEGATIVE); UDS - BENZO NEGATIVE QUAL (NEGATIVE); UDS - COCAINE NEGATIVE QUAL (NEGATIVE); UDS - OPIATE NEGATIVE QUAL (NEGATIVE); UDS - PCP NEGATIVE QUAL (NEGATIVE); UDS - THC NEGATIVE QUAL (NEGATIVE)
[2019-09-10 09:53] VITALS: BP 109/57
== END 2019-09-10 09:53 | disposition home or self-care (01) ==
LOC: D.ER 05:38
PROVIDERS: Emergency Medicine
DX: Z76.5 Malingerer [conscious simulation] (principal); N17.9 Acute kidney failure, unspecified; E86.0 Dehydration; G40.909 Epilepsy, unspecified, not intractable, without status epilepticus; J45.909 Unspecified asthma, uncomplicated

== ENCOUNTER 2019-09-26 10:18 | Emergency (ER) | payer OTHER ==
[~2019-09-26] VITALS: Ht 177.8 cm; Wt 88.0 kg
[~2019-09-26 10:18] MED LIST changes: +AMITRIPTYLINE H50 MG PO; +GABAPENTIN300 MG PO; +KEPPRA750 MG PO; +LEXAPRO20 MG PO; +LIPITOR20 MG PO; +VITAMIN D2
[2019-09-26 10:27] VITALS: BP 123/77; Ht 177.8 cm; Wt 88.0 kg
[2019-09-26] MEDS ORDERED: NAPROSYN500 MG PO (10:58)
== END 2019-09-26 11:07 | disposition home or self-care (01) ==
LOC: D.ER 10:18
DX: S62.306A Unspecified fracture of fifth metacarpal bone, right hand, initial encounter for closed fracture (principal); M79.641 Pain in right hand; W22.8XXA Striking against or struck by other objects, initial encounter; Y93.9 Activity, unspecified; Y92.9 Unspecified place or not applicable

== ENCOUNTER 2019-09-27 10:59 | Emergency (ER) | payer OTHER ==
[~2019-09-27] VITALS: Ht 177.8 cm; Wt 88.3 kg
[~2019-09-27 10:59] MED LIST changes: +NAPROSYN500 MG PO
[2019-09-27 11:09] VITALS: BP 130/71; Ht 177.8 cm; Wt 88.3 kg
== END 2019-09-27 11:53 | disposition home or self-care (01) ==
LOC: D.ER 10:59
DX: S62.91XA Unspecified fracture of right hand, initial encounter for closed fracture (principal); X58.XXXA Exposure to other specified factors, initial encounter

== ENCOUNTER 2019-09-30 10:17 | Emergency (ER) | payer OTHER ==
[~2019-09-30] VITALS: Ht 182.9 cm; Wt 87.7 kg
[~2019-09-30 10:17] MED LIST changes: +KEPPRA500 MG PO; -KEPPRA750 MG PO
[2019-09-30 10:30] VITALS: BP 122/65; Ht 182.9 cm; Wt 87.7 kg
[2019-09-30] MEDS ORDERED: ATIVAN1 MG PO (10:33)
== END 2019-09-30 11:57 | disposition home or self-care (01) ==
LOC: D.ER 10:17
DX: S63.502A Unspecified sprain of left wrist, initial encounter (principal); S60.222A Contusion of left hand, initial encounter; W19.XXXA Unspecified fall, initial encounter; Y93.9 Activity, unspecified; Y92.9 Unspecified place or not applicable

== ENCOUNTER 2019-10-02 14:13 | Inpatient (IN) | payer OTHER ==
[2019-10-02] VITALS (8 sets, daily range): BP systolic 106–124; BP diastolic 48–71
[~2019-10-02] VITALS: Ht 182.9 cm; Wt 85.6 kg
[~2019-10-02 14:13] MED LIST changes: +ATIVAN1 MG PO
[2019-10-02 14:37] LABS: BASOPHILS 0.3 % (0-2); EOSINOPHILS 3.3 % (0-7); HEMATOCRIT 43.8 % (42.0-54.0); HEMOGLOBIN 14.4 g/dL (13.5-17.5); IMMATURE GRANULOCYTES 0.2 % (0-5); LYMPHOCYTES 33.4 % (15-50); MCH 29.5 pg (26.0-34.0); MCHC 32.9 g/dL (31.0-37.0); MCV 89.8 fL (80.0-100.0); MEAN PLATELET VOLUME 9.4 fL (7.4-10.4); MONOCYTES 6.5 % (2-11); NEUTROPHILS 56.3 % (40-80); RBC 4.88 10x6/uL (4.20-6.10); RDW 15.4 % (11.5-14.5); WBC 9.2 10x3/uL (4.8-10.8)
[2019-10-02 14:39] LABS: PLATELET COUNT 315 10x3/uL (130-400)
[2019-10-02 14:39] LABS: BILIRUBIN NEGATIVE (NEGATIVE); GLUCOSE NEGATIVE (NEGATIVE); KETONE NEGATIVE (NEGATIVE); NITRITE NEGATIVE (NEGATIVE); UROBILINOGEN NORMAL (NORMAL)
[2019-10-02 14:47] LABS: ANION GAP 18.5 mmol/L (8-16); CALCIUM 9.1 mg/dL (8.5-10.1); CARBON DIOXIDE 17.9 mmol/L (21.0-32.0); CREATININE - SERUM 1.2 mg/dL (0.6-1.3); POTASSIUM - SERUM 4.4 mmol/L (3.5-5.1)
[2019-10-02 14:51] LABS: UDS - AMPHET NEGATIVE QUAL (NEGATIVE); UDS - BARB NEGATIVE QUAL (NEGATIVE); UDS - BENZO NEGATIVE QUAL (NEGATIVE); UDS - COCAINE NEGATIVE QUAL (NEGATIVE); UDS - OPIATE NEGATIVE QUAL (NEGATIVE); UDS - PCP NEGATIVE QUAL (NEGATIVE); UDS - THC NEGATIVE QUAL (NEGATIVE)
[2019-10-02 14:53] LABS: ALBUMIN 4.8 g/dL (3.4-5.0); BILIRUBIN - TOTAL 0.66 mg/dL (0.2-1.3); PROTEIN - SERUM 8.3 g/dL (6.4-8.2)
--- NOTE | 2019-10-02 17:00 | NUR ---
PT ASSISTED WITH URINAL.
--- NOTE | 2019-10-02 17:05 | NUR ---
XR AT BEDSIDE. PT AWAKE AND ASKING FOR A BLANKET. NO S/S OF ACUTE DISTRESS NOTED.
--- NOTE | 2019-10-02 18:30 | NUR ---
PT AWAKE AND RESTING ON BED. PT UPDATED ON PLAN OF CARE.
[2019-10-02] MEDS ORDERED: NAPROSYN500 MG PO (19:58)
--- NOTE | 2019-10-02 20:00 | NUR ---
RECEIVED PT TO FLOOR FROM ER VIA WHEELCHAIR. BRACE ON LEFT WRIST - PT STATES WAS BROKE IN THE PAST. SPLINT WITH GABRIELE WRAP ON RIGHT HAND. REMOVED GABRIELE WRAP, SKIN WNL, REWRAPPED WITH NEW GABRIELE. REVIEWED HOME MEDS WITH PT. PT SEEMS TO KNOW ALL MEDS HE TAKES AND GAVE LAST TIMES AND DOSES. PT CLAIMS HE DOESN'T KNOW WHERE HE IS OR HOW HE GOT HERE. PT DOESN'T KNOW WHAT TIME IT IS. STATES LAST THING HE REMEMBERS IS AFTER DRUZE HE TOOK A NAPROXEN FOR PAIN IN HIS HAND. STATES HIS CHEST STARTED BURNING, FELT NUMB ALL OVER AND COULDN'T BREATH THINKS HE MAY HAVE "BLACKED OUT" AND NEXT HE IS "WAKING UP" HERE. PT STATES HE HAS GENERALIZED PAIN AND A MIGRAINE 9/10 PAIN SCALE. DENIES NUMBNESS OR CHEST PAIN. PUT SCD'S ON PT. PT REQUESTED A COLA, ICE CREAM AND JELLO. NO OTHER NEEDS. WILL CONTINUE TO MONITOR.
[2019-10-02] MEDS ORDERED: EFFEXOR XR150 MG PO (20:08)
[2019-10-02] MEDS ORDERED: ABILIFY10 MG PO (20:09)
[2019-10-03] VITALS: BP 99/51
[2019-10-03 02:33] VITALS: Ht 182.9 cm; Wt 85.6 kg
--- NOTE | 2019-10-03 02:49 | NUR ---
PT HAS BEEN RESTING WELL. WOKE UP AND REQUESTED ANOTHER COLA AND COFFEE. PT AMBULATED TO TOILET WITH NO DIFFICULTY AND HAD BOWEL MOVEMENT. STATES HE FEELS MUCH BETTER AND LOOKS FORWARD TO GOING HOME TODAY BECAUSE HE HAS AN APPOINTMENT AT EYE DOCTOR. NO OTHER NEEDS. PT BACK IN BED WITH SCD'S ON. WILL CONTINUE TO MONITOR.
[2019-10-03 04:00] VITALS: BP 131/69
[2019-10-03 05:12] LABS: BASOPHILS 0.5 % (0-2); HEMATOCRIT 41.1 % (42.0-54.0); HEMOGLOBIN 13.3 g/dL (13.5-17.5); IMMATURE GRANULOCYTES 0.2 % (0-5); LYMPHOCYTES 22.3 % (15-50); MCHC 32.4 g/dL (31.0-37.0); MCV 89.5 fL (80.0-100.0); MEAN PLATELET VOLUME 9.3 fL (7.4-10.4); MONOCYTES 8.8 % (2-11); NEUTROPHILS 65.2 % (40-80); PLATELET COUNT 276 10x3/uL (130-400); RBC 4.59 10x6/uL (4.20-6.10); RDW 15.4 % (11.5-14.5)
[2019-10-03 05:16] LABS: WBC 5.9 10x3/uL (4.8-10.8)
[2019-10-03 05:37] LABS: CALCIUM 8.5 mg/dL (8.5-10.1); CHLORIDE - SERUM 112 mmol/L (98-107); CREATININE - SERUM 1.1 mg/dL (0.6-1.3); GLUCOSE 128 mg/dL (74-106); MAGNESIUM - SERUM 2.1 mg/dL (1.8-2.4); SODIUM 145 mmol/L (136-145); eGFR NON AFRICAN AMERICAN 80 mL/min (90-120)
[2019-10-03 05:46] LABS: CALC OSMOLALITY 288 mosm/kg (275-300); CARBON DIOXIDE 22.5 mmol/L (21.0-32.0); PHOSPHOROUS 1.3 mg/dL (2.5-4.9); POTASSIUM - SERUM 3.1 mmol/L (3.5-5.1); UREA NITROGEN 8 mg/dL (7-18)
--- NOTE | 2019-10-03 07:05 | NUR ---
A&O X3, DENIES NEEDS, STATES HE IS READY TO GO HOME, HE HAS AN EYE APPOINTMENT HE CAN'T MISS AT 1 TODAY, BREATHING EVEN UNLABORED, CALL LIGHT IN REACH, LUNGS CTA, WILL CONTINUE POC
[2019-10-03 08:41] VITALS: BP 129/65
--- NOTE | 2019-10-03 10:53 | NUR ---
PT STATES HE NEEDS TO LEAVE FOR AN EYE APPOINTMENT, CALLED [facility] SHE STATED HE WAS NOT BEING DC TODAY, PT SIGNED AMA SIGN AFTER BEING MADE AWARE OF RISKS FOR LEAVING, AMA FORM SIGNED, IV REMOVED FROM RFA TIP INTACT, BEING DC WITH FAMILY
== END 2019-10-03 11:00 | disposition left against medical advice (07) | DRG 101 ==
LOC: D.ER 14:13 → D.MS 16:53
PROVIDERS: Emergency Medicine; ADMIT Family Medicine; ATTEND Family Medicine
DX: G40.409 Other generalized epilepsy and epileptic syndromes, not intractable, without status epilepticus (principal); F31.9 Bipolar disorder, unspecified; F41.8 Other specified anxiety disorders

== ENCOUNTER 2019-10-08 16:48 | Emergency (ER) | payer OTHER ==
[~2019-10-08] VITALS: Ht 182.9 cm; Wt 81.8 kg
[~2019-10-08 16:48] MED LIST changes: +EFFEXOR XR150 MG PO
[2019-10-08 16:54] VITALS: BP 118/65; Ht 182.9 cm; Wt 81.8 kg
[2019-10-08 18:00] LABS: BASOPHILS 0.6 % (0-2); EOSINOPHILS 2.2 % (0-7); HEMATOCRIT 44.1 % (42.0-54.0); HEMOGLOBIN 14.5 g/dL (13.5-17.5); LYMPHOCYTES 24.6 % (15-50); MCH 29.4 pg (26.0-34.0); MCHC 32.9 g/dL (31.0-37.0); MCV 89.5 fL (80.0-100.0); MEAN PLATELET VOLUME 8.8 fL (7.4-10.4); MONOCYTES 6.3 % (2-11); NEUTROPHILS 66.3 % (40-80); PLATELET COUNT 269 10x3/uL (130-400); RBC 4.93 10x6/uL (4.20-6.10); RDW 15.5 % (11.5-14.5); WBC 6.4 10x3/uL (4.8-10.8)
[2019-10-08 18:13] LABS: CALC OSMOLALITY 282 mosm/kg (275-300); CALCIUM 8.9 mg/dL (8.5-10.1); CARBON DIOXIDE 22.3 mmol/L (21.0-32.0); CHLORIDE - SERUM 109 mmol/L (98-107); CREATININE - SERUM 1.1 mg/dL (0.6-1.3); GLUCOSE 96 mg/dL (74-106); POTASSIUM - SERUM 3.9 mmol/L (3.5-5.1); SODIUM 142 mmol/L (136-145); UREA NITROGEN 12 mg/dL (7-18); eGFR NON AFRICAN AMERICAN 80 mL/min (90-120)
[2019-10-08 18:16] LABS: ALBUMIN 4.2 g/dL (3.4-5.0); ALKALINE PHOSPHATASE 146 U/L (30-120); ALT (SGPT) 28 U/L (10-68); AMYLASE - SERUM 79 U/L (25-115); BILIRUBIN - TOTAL 0.37 mg/dL (0.2-1.3); LIPASE 251 U/L (73-393); PROTEIN - SERUM 7.7 g/dL (6.4-8.2)
[2019-10-08 18:20] LABS: TROPONIN-I < 0.017 ng/mL (0.000-0.060)
[2019-10-08] MEDS ORDERED: PEPCID40 MG PO (19:08)
[2019-10-08] MEDS ORDERED: CARAFATE1 G PO (19:08)
[2019-10-08 20:14] LABS: BILIRUBIN NEGATIVE (NEGATIVE); GLUCOSE NEGATIVE (NEGATIVE); KETONE NEGATIVE (NEGATIVE); NITRITE NEGATIVE (NEGATIVE); UROBILINOGEN NORMAL (NORMAL)
== END 2019-10-08 21:04 | disposition home or self-care (01) ==
LOC: D.ER 16:48
PROVIDERS: Family Medicine
DX: K29.70 Gastritis, unspecified, without bleeding (principal); K59.00 Constipation, unspecified; K76.0 Fatty (change of) liver, not elsewhere classified; R79.89 Other specified abnormal findings of blood chemistry

== ENCOUNTER 2019-10-14 08:48 | Emergency (ER) | payer OTHER ==
[~2019-10-14] VITALS: Ht 182.9 cm; Wt 84.1 kg
[~2019-10-14 08:48] MED LIST changes: +CARAFATE1 G PO; +PEPCID40 MG PO
[2019-10-14 08:49] VITALS: Ht 182.9 cm; Wt 84.1 kg
[2019-10-14 09:43] LABS: BILIRUBIN NEGATIVE (NEGATIVE); GLUCOSE NEGATIVE (NEGATIVE); KETONE NEGATIVE (NEGATIVE); NITRITE NEGATIVE (NEGATIVE); UROBILINOGEN NORMAL (NORMAL)
[2019-10-14 09:56] LABS: UDS - AMPHET NEGATIVE QUAL (NEGATIVE); UDS - BARB NEGATIVE QUAL (NEGATIVE); UDS - BENZO NEGATIVE QUAL (NEGATIVE); UDS - COCAINE NEGATIVE QUAL (NEGATIVE); UDS - OPIATE NEGATIVE QUAL (NEGATIVE); UDS - PCP NEGATIVE QUAL (NEGATIVE); UDS - THC NEGATIVE QUAL (NEGATIVE)
[2019-10-14 10:04] LABS: BASOPHILS 0.7 % (0-2); EOSINOPHILS 2.4 % (0-7); HEMATOCRIT 41.5 % (42.0-54.0); HEMOGLOBIN 13.6 g/dL (13.5-17.5); LYMPHOCYTES 25.4 % (15-50); MCH 29.2 pg (26.0-34.0); MCHC 32.8 g/dL (31.0-37.0); MCV 89.1 fL (80.0-100.0); MEAN PLATELET VOLUME 8.8 fL (7.4-10.4); MONOCYTES 6.7 % (2-11); NEUTROPHILS 64.8 % (40-80); PLATELET COUNT 284 10x3/uL (130-400); RBC 4.66 10x6/uL (4.20-6.10); RDW 15.2 % (11.5-14.5); WBC 4.5 10x3/uL (4.8-10.8)
[2019-10-14 10:07] LABS: CALC OSMOLALITY 283 mosm/kg (275-300); CALCIUM 8.7 mg/dL (8.5-10.1); CARBON DIOXIDE 21.5 mmol/L (21.0-32.0); CHLORIDE - SERUM 110 mmol/L (98-107); CREATININE - SERUM 1.1 mg/dL (0.6-1.3); GLUCOSE 92 mg/dL (74-106); POTASSIUM - SERUM 3.5 mmol/L (3.5-5.1); SODIUM 143 mmol/L (136-145); UREA NITROGEN 10 mg/dL (7-18); eGFR NON AFRICAN AMERICAN 80 mL/min (90-120)
[2019-10-14 10:08] LABS: INR 1.01 (0.85-1.17); PROTIME 13.2 SECONDS (11.6-15.0)
[2019-10-14 10:23] LABS: ALBUMIN 3.9 g/dL (3.4-5.0); ALKALINE PHOSPHATASE 139 U/L (30-120); ALT (SGPT) 27 U/L (10-68); BILIRUBIN - TOTAL 0.28 mg/dL (0.2-1.3); CKMB 0.8 U/L (0.0-3.6); CREATINE KINASE 136 UL (21-232); MAGNESIUM - SERUM 2.1 mg/dL (1.8-2.4); TROPONIN-I < 0.017 ng/mL (0.000-0.060)
[2019-10-14 10:41] VITALS: BP 112/75
== END 2019-10-14 10:42 | disposition home or self-care (01) ==
LOC: D.ER 08:48
PROVIDERS: Emergency Medicine
DX: R07.89 Other chest pain (principal); R91.1 Solitary pulmonary nodule

== ENCOUNTER → 2019-10-27 09:16 | Outpatient (CLI) | payer OTHER ==
[2019-10-14 08:49] VITALS: BMI 25.1
== END | disposition home or self-care (01) ==
LOC: D.NM 09:16
PROVIDERS: ATTEND Internal Medicine Gastroenterology
DX: K31.84 Gastroparesis (principal); R10.13 Epigastric pain; R19.4 Change in bowel habit; R11.2 Nausea with vomiting, unspecified

== ENCOUNTER 2019-10-29 15:01 | Emergency (ER) | payer OTHER ==
[~2019-10-29] VITALS: Ht 182.9 cm; Wt 81.6 kg
[2019-10-29 15:17] VITALS: Ht 182.9 cm; Wt 81.6 kg
[2019-10-29 15:45] LABS: BASOPHILS 0.3 % (0-2); EOSINOPHILS 3.9 % (0-7); HEMATOCRIT 39.1 % (42.0-54.0); HEMOGLOBIN 12.3 g/dL (13.5-17.5); IMMATURE GRANULOCYTES 0.2 % (0-5); LYMPHOCYTES 35.2 % (15-50); MCH 29.2 pg (26.0-34.0); MCHC 31.5 g/dL (31.0-37.0); MCV 92.9 fL (80.0-100.0); MONOCYTES 13.8 % (2-11); NEUTROPHILS 46.6 % (40-80); PLATELET COUNT 219 10x3/uL (130-400); RBC 4.21 10x6/uL (4.20-6.10); RDW 15.1 % (11.5-14.5); WBC 5.9 10x3/uL (4.8-10.8)
[2019-10-29 15:53] LABS: APTT 26.4 SECONDS (22.8-39.4); INR 0.99 (0.85-1.17); PROTIME 13.1 SECONDS (11.6-15.0)
[2019-10-29 15:58] LABS: CALC OSMOLALITY 284 mosm/kg (275-300); CALCIUM 8.6 mg/dL (8.5-10.1); CARBON DIOXIDE 28.6 mmol/L (21.0-32.0); CHLORIDE - SERUM 108 mmol/L (98-107); CREATININE - SERUM 0.9 mg/dL (0.6-1.3); GLUCOSE 96 mg/dL (74-106); POTASSIUM - SERUM 3.6 mmol/L (3.5-5.1); SODIUM 143 mmol/L (136-145); UREA NITROGEN 13 mg/dL (7-18); eGFR NON AFRICAN AMERICAN > 90 mL/min (90-120)
[2019-10-29 16:16] LABS: ALBUMIN 3.4 g/dL (3.4-5.0); ALKALINE PHOSPHATASE 133 U/L (30-120); ALT (SGPT) 31 U/L (10-68); BILIRUBIN - TOTAL 0.21 mg/dL (0.2-1.3); CREATINE KINASE 143 UL (21-232); MAGNESIUM - SERUM 2.1 mg/dL (1.8-2.4); PROTEIN - SERUM 6.5 g/dL (6.4-8.2)
[2019-10-29 16:19] LABS: TROPONIN-I < 0.017 ng/mL (0.000-0.060)
[2019-10-29 19:14] VITALS: BP 123/79
== END 2019-10-29 17:01 | disposition home or self-care (01) ==
LOC: D.ER 15:01
PROVIDERS: Family Medicine
DX: R07.89 Other chest pain (principal); R42 Dizziness and giddiness; R53.1 Weakness

== ENCOUNTER 2019-11-03 12:48 | Emergency (ER) | payer OTHER ==
[~2019-11-03] VITALS: Ht 182.9 cm; Wt 81.8 kg
[2019-11-03 12:50] VITALS: Ht 182.9 cm; Wt 81.8 kg
[2019-11-03 15:52] LABS: CALC OSMOLALITY 288 mosm/kg (275-300); CALCIUM 8.9 mg/dL (8.5-10.1); CARBON DIOXIDE 28.3 mmol/L (21.0-32.0); CHLORIDE - SERUM 108 mmol/L (98-107); CREATININE - SERUM 0.9 mg/dL (0.6-1.3); GLUCOSE 94 mg/dL (74-106); POTASSIUM - SERUM 3.9 mmol/L (3.5-5.1); SODIUM 145 mmol/L (136-145); UREA NITROGEN 12 mg/dL (7-18); eGFR NON AFRICAN AMERICAN > 90 mL/min (90-120)
[2019-11-03 16:19] LABS: ALBUMIN 3.7 g/dL (3.4-5.0); ALKALINE PHOSPHATASE 143 U/L (30-120); ALT (SGPT) 45 U/L (10-68); BILIRUBIN - TOTAL 0.31 mg/dL (0.2-1.3); CREATINE KINASE 279 UL (21-232); MAGNESIUM - SERUM 2.1 mg/dL (1.8-2.4); PRO BNP 39 pg/mL (0-125); PROTEIN - SERUM 6.7 g/dL (6.4-8.2); TROPONIN-I 0.019 ng/mL (0.000-0.060)
[2019-11-03 16:20] LABS: CKMB 2.6 U/L (0.0-3.6)
[2019-11-03 16:45] VITALS: BP 122/72
== END 2019-11-03 16:46 | disposition home or self-care (01) ==
LOC: D.ER 12:48
PROVIDERS: Emergency Medicine
DX: F41.1 Generalized anxiety disorder (principal); F41.0 Panic disorder [episodic paroxysmal anxiety]; F43.12 Post-traumatic stress disorder, chronic; R07.9 Chest pain, unspecified; R06.02 Shortness of breath; R42 Dizziness and giddiness

== ENCOUNTER 2019-11-04 20:36 | Emergency (ER) | payer OTHER ==
[~2019-11-04] VITALS: Ht 182.9 cm; Wt 40.5 kg
[2019-11-04 21:39] VITALS: Ht 182.9 cm; Wt 40.5 kg
[2019-11-05] MEDS ORDERED: ULTRAM50 MG PO (00:56)
[2019-11-05 04:23] VITALS: BP 112/63
== END 2019-11-05 01:20 | disposition home or self-care (01) ==
LOC: D.ER 20:36
DX: S93.402A Sprain of unspecified ligament of left ankle, initial encounter (principal); J45.909 Unspecified asthma, uncomplicated; Z72.0 Tobacco use; W51.XXXA Accidental striking against or bumped into by another person, initial encounter; Y93.9 Activity, unspecified; Y92.9 Unspecified place or not applicable

== ENCOUNTER 2019-11-10 09:05 | Emergency (ER) | payer OTHER ==
[~2019-11-10] VITALS: Ht 182.9 cm; Wt 80.0 kg
[~2019-11-10 09:05] MED LIST changes: +ULTRAM50 MG PO
[2019-11-10 09:10] VITALS: Ht 182.9 cm; Wt 80.0 kg
[2019-11-10 10:50] LABS: BASOPHILS 0.5 % (0-2); EOSINOPHILS 1.5 % (0-7); HEMATOCRIT 39.5 % (42.0-54.0); HEMOGLOBIN 12.4 g/dL (13.5-17.5); IMMATURE GRANULOCYTES 0.1 % (0-5); LYMPHOCYTES 13.2 % (15-50); MCH 28.8 pg (26.0-34.0); MCHC 31.4 g/dL (31.0-37.0); MCV 91.6 fL (80.0-100.0); MEAN PLATELET VOLUME 8.7 fL (7.4-10.4); MONOCYTES 9.7 % (2-11); RBC 4.31 10x6/uL (4.20-6.10); RDW 14.3 % (11.5-14.5); WBC 7.9 10x3/uL (4.8-10.8)
[2019-11-10 10:52] LABS: PLATELET COUNT 319 10x3/uL (130-400)
[2019-11-10 10:57] LABS: CALC OSMOLALITY 277 mosm/kg (275-300); CALCIUM 8.5 mg/dL (8.5-10.1); CARBON DIOXIDE 26.6 mmol/L (21.0-32.0); CHLORIDE - SERUM 107 mmol/L (98-107); GLUCOSE 89 mg/dL (74-106); POTASSIUM - SERUM 3.6 mmol/L (3.5-5.1); SODIUM 140 mmol/L (136-145); UREA NITROGEN 13 mg/dL (7-18); eGFR NON AFRICAN AMERICAN 90 mL/min (90-120)
[2019-11-10 11:24] LABS: ALBUMIN 3.6 g/dL (3.4-5.0); ALKALINE PHOSPHATASE 150 U/L (30-120); ALT (SGPT) 35 U/L (10-68); BILIRUBIN - TOTAL 0.21 mg/dL (0.2-1.3); CKMB 1.3 U/L (0.0-3.6); CREATINE KINASE 395 UL (21-232); PROTEIN - SERUM 7.3 g/dL (6.4-8.2); TROPONIN-I < 0.017 ng/mL (0.000-0.060)
[2019-11-10 11:31] LABS: BILIRUBIN NEGATIVE (NEGATIVE); KETONE NEGATIVE (NEGATIVE); NITRITE NEGATIVE (NEGATIVE); UDS - AMPHET NEGATIVE QUAL (NEGATIVE); UDS - BARB NEGATIVE QUAL (NEGATIVE); UDS - BENZO POSITIVE QUAL (NEGATIVE); UDS - COCAINE NEGATIVE QUAL (NEGATIVE); UDS - OPIATE NEGATIVE QUAL (NEGATIVE); UDS - PCP NEGATIVE QUAL (NEGATIVE); UDS - THC POSITIVE QUAL (NEGATIVE); UROBILINOGEN NORMAL (NORMAL)
[2019-11-10] MEDS ORDERED: MUPIROCIN22 GM TOPICAL (12:07)
[2019-11-10 13:39] VITALS: BP 114/66
== END 2019-11-10 12:10 | disposition home or self-care (01) ==
LOC: D.ER 09:05
PROVIDERS: Family Medicine
DX: L30.9 Dermatitis, unspecified (principal); E11.9 Type 2 diabetes mellitus without complications; I10 Essential (primary) hypertension; K21.9 Gastro-esophageal reflux disease without esophagitis; J45.909 Unspecified asthma, uncomplicated; Z72.0 Tobacco use

== ENCOUNTER 2019-11-26 10:50 | Inpatient (IN) | payer OTHER ==
[~2019-11-26] VITALS: Ht 182.9 cm; Wt 79.4 kg
[~2019-11-26 10:50] MED LIST changes: +MUPIROCIN22 GM TOPICAL
[2019-11-26 11:48] LABS: BASOPHILS 1.2 % (0-2); EOSINOPHILS 3.9 % (0-7); HEMATOCRIT 39.4 % (42.0-54.0); HEMOGLOBIN 12.5 g/dL (13.5-17.5); MCH 28.6 pg (26.0-34.0); MCHC 31.7 g/dL (31.0-37.0); MCV 90.2 fL (80.0-100.0); MEAN PLATELET VOLUME 9.1 fL (7.4-10.4); MONOCYTES 6.5 % (2-11); NEUTROPHILS 62.4 % (40-80); PLATELET COUNT 293 10x3/uL (130-400); RBC 4.37 10x6/uL (4.20-6.10); RDW 14.5 % (11.5-14.5); WBC 5.1 10x3/uL (4.8-10.8)
[2019-11-26 11:49] LABS: BILIRUBIN NEGATIVE (NEGATIVE); KETONE NEGATIVE (NEGATIVE); NITRITE NEGATIVE (NEGATIVE); UROBILINOGEN NORMAL mg/dL (< 2)
[2019-11-26 11:53] LABS: UDS - AMPHET NEGATIVE QUAL (NEGATIVE); UDS - BARB NEGATIVE QUAL (NEGATIVE); UDS - BENZO NEGATIVE QUAL (NEGATIVE); UDS - COCAINE NEGATIVE QUAL (NEGATIVE); UDS - OPIATE NEGATIVE QUAL (NEGATIVE); UDS - PCP NEGATIVE QUAL (NEGATIVE); UDS - THC NEGATIVE QUAL (NEGATIVE)
[2019-11-26 11:56] LABS: APTT 28.7 SECONDS (22.8-39.4); INR 0.97 (0.85-1.17); PROTIME 12.8 SECONDS (11.6-15.0)
[2019-11-26 12:05] LABS: CALC OSMOLALITY 281 mosm/kg (275-300); CALCIUM 8.8 mg/dL (8.5-10.1); CHLORIDE - SERUM 109 mmol/L (98-107); CREATININE - SERUM 0.9 mg/dL (0.6-1.3); GLUCOSE 93 mg/dL (74-106); POTASSIUM - SERUM 3.6 mmol/L (3.5-5.1); SODIUM 142 mmol/L (136-145); UREA NITROGEN 10 mg/dL (7-18); eGFR NON AFRICAN AMERICAN > 90 mL/min (90-120)
[2019-11-26 12:09] LABS: ALBUMIN 3.6 g/dL (3.4-5.0); ALKALINE PHOSPHATASE 126 U/L (30-120); ALT (SGPT) 24 U/L (10-68); BILIRUBIN - TOTAL 0.35 mg/dL (0.2-1.3); LIPASE 266 U/L (73-393); MAGNESIUM - SERUM 2.1 mg/dL (1.8-2.4)
[2019-11-26 12:10] LABS: TROPONIN-I < 0.017 ng/mL (0.000-0.060)
[2019-11-26 14:09] VITALS: BP 115/78
--- NOTE | 2019-11-26 14:16 | NUR ---
PT LAYING IN BED. NO DISTRESS NOTED. COLOR WNL FOR RACE. RESPIRATIONS ARE EVEN AND UNLABORED. WILL CONTINUE TO MONITOR. PT VOICES NO NEEDS AT THIS TIME.
--- NOTE | 2019-11-26 16:48 | NUR ---
PATIENT LAYING IN BED. NO DISTRESS NOTED. RESPIRATIONS ARE EVEN AND UNLABORED.
[2019-11-26 16:49] VITALS: BP 93/56
[2019-11-26 17:43] VITALS: BP 97/62
[2019-11-26 20:16] VITALS: BP 129/82
[2019-11-26 21:45] VITALS: BP 125/68
[2019-11-26 22:43] VITALS: BP 132/60
--- NOTE | 2019-11-26 22:46 | NUR ---
PATIENT SITTING UP ON STRETCHER EATING, VITAL SIGNS STABLE AT THIS TIME.
--- NOTE | 2019-11-26 23:40 | NUR ---
PT ARRIVED ON UNIT VIA STRETCHER, ESCORTED BY ER NURSE. RE-STARTED IV FLUIDS PER ORDER. POSITIONED IN BED FOR COMFORT. ORIENTED PT TO ROOM AND CALL LIGHT. PLACED YELLOW GOWN, GRIPPER SOCKS AND YELLOW ARMBAND ON PT FOR FALL RISK PRECAUTIONS.
--- NOTE | 2019-11-27 00:05 | NUR ---
GAVE X2 PUDDINGS, X2 JELLO, AND X2 LEMON SOLOMON SODAS FOR SNACK.
[2019-11-27] MEDS ORDERED: BUSPIRONE HCL30 MG PO (00:06)
[2019-11-27] MEDS ORDERED: CLINDAMYCIN HC300 MG PO (00:07)
[2019-11-27 00:28] VITALS: BP 109/62; BMI 23.8
[2019-11-27 00:31] VITALS: BP 136/92
--- NOTE | 2019-11-27 00:34 | NUR ---
MED REC COMPLETE. PT HAS SEVERAL MEDICATIONS THAT HE HAS NOT REFILLED IN MONTHS...STATES HE IS HAVING PROBLEMS WITH DRILLER MULTIPLE SPINDLE HE IS SEEING, BUT NEEDS THESE MEDICATIONS.
--- NOTE | 2019-11-27 00:35 | NUR ---
ADMISSION ASSESSMENT AND HISTORY COMPLETE.
[2019-11-27 06:10] LABS: BASOPHILS 0.6 % (0-2); EOSINOPHILS 3.8 % (0-7); HEMOGLOBIN 11.6 g/dL (13.5-17.5); IMMATURE GRANULOCYTES 0.1 % (0-5); MCHC 30.5 g/dL (31.0-37.0); MCV 91.8 fL (80.0-100.0); MEAN PLATELET VOLUME 9.7 fL (7.4-10.4); MONOCYTES 7.9 % (2-11); NEUTROPHILS 58.6 % (40-80); PLATELET COUNT 292 10x3/uL (130-400); RBC 4.14 10x6/uL (4.20-6.10); RDW 14.7 % (11.5-14.5)
[2019-11-27 06:16] LABS: WBC 7.2 10x3/uL (4.8-10.8)
[2019-11-27 06:43] LABS: CALCIUM 8.1 mg/dL (8.5-10.1); CARBON DIOXIDE 26.6 mmol/L (21.0-32.0); CHLORIDE - SERUM 111 mmol/L (98-107); CREATININE - SERUM 0.9 mg/dL (0.6-1.3); POTASSIUM - SERUM 3.6 mmol/L (3.5-5.1); SODIUM 144 mmol/L (136-145); eGFR NON AFRICAN AMERICAN > 90 mL/min (90-120)
[2019-11-27 06:59] LABS: CALC OSMOLALITY 281 mosm/kg (275-300); GLUCOSE 53 mg/dL (74-106); UREA NITROGEN 7 mg/dL (7-18)
[2019-11-27 08:10] VITALS: BP 106/64
--- NOTE | 2019-11-27 09:54 | NUR ---
PATIENT LAYING IN BED ON CL FOR ASSISTANCE WITH URINAL, FAMILY AT BEDSIDE. NO OTHER NEEDS AT THIS TIME. CONTINUE WITH PLAN OF CARE
--- NOTE | 2019-11-27 10:42 | NUR ---
I have reviewed this patient and I concur with the Shift Assessment completed by the Licensed Practical Nurse today this shift.
--- NOTE | 2019-11-27 11:13 | NUR ---
PATIENT ASKED FOR BLOOD SUGAR TO BE CHECKED. PATIENT BLOOD SUGAR IS 134, PT REQUESTED PAIN MEDICATION, INSURED PATIENT WHEN IT IS TIME I WILL BRING MEDICATION IN. NO OTHER NEEDS AT THIS TIME. CONTINUE WITH PLAN OF CARE
[2019-11-27 12:29] VITALS: BP 122/78
[2019-11-27 16:49] VITALS: BP 123/77
--- NOTE | 2019-11-27 17:50 | NUR ---
PATIENT LYING IN BED NO S/SX OF DISTRESS, NO NEEDS VOICED, CL IN REACH. CONTINUE WITH PLAN OF CARE
--- NOTE | 2019-11-27 19:00 | NUR ---
RECEIVED REPORT, ASSUMED CARE, IV PATENT, DENIES NEEDS, NO S/S OF DISTRESS NOTED, BED LOWEST POSITION, CALL LIGHT IN REACH, BREATHING EVEN UNLABORED, URINAL AT BEDSIDE, BED ALARM ON, A&O X3
--- NOTE | 2019-11-27 19:01 | NUR ---
PATIENT ADVISOR CONSULTANT LIGHT NEEDING URINAL EMPTIED, PATIENT THEN ASKED IF HE COULD HAVE A PORTABLE O2 TANK WHEN HE DISCHARGES FROM HOSPITAL. EXPLAINED TO PATIENT THAT HE WOULD NEED TO QUALIFY FOR IT AND THAT I WILL HAVE CASE MANAGEMENT COME AND TALK TO HIM ABOUT THIS IN THE MORNING. PATIENT THEN STATED HE WANTED TO WALK AROUND NURSING UNIT BECAUSE HIS LEGS" FEEL RUBBERY" PT HAD SYNCOPE EPISODES IN ER PRIOR TO BEING ADMITTED AND IS A FALL RISK. ASKED PATIENT TO WAIT FOR AN AID TO BE AVAILABLE TO WALK WITH HIM. CL IN REACH CONTINUE WITH PLAN OF CARE
[2019-11-27 20:00] VITALS: BP 115/70
--- NOTE | 2019-11-27 23:34 | NUR ---
I have reviewed this patient and I concur with the Shift Assessment completed by the Licensed Practical Nurse today this shift.
[2019-11-28] VITALS (7 sets, daily range): BP systolic 98–132; BP diastolic 47–68; Ht 182.9 cm; Wt 79.4 kg
[2019-11-28 05:39] LABS: ALKALINE PHOSPHATASE 122 U/L (30-120); BILIRUBIN - TOTAL 0.22 mg/dL (0.2-1.3); CALCIUM 8.4 mg/dL (8.5-10.1); CARBON DIOXIDE 30.9 mmol/L (21.0-32.0); CHLORIDE - SERUM 108 mmol/L (98-107); CREATININE - SERUM 0.9 mg/dL (0.6-1.3); POTASSIUM - SERUM 3.9 mmol/L (3.5-5.1); PROTEIN - SERUM 6.1 g/dL (6.4-8.2); SODIUM 142 mmol/L (136-145); UREA NITROGEN 7 mg/dL (7-18); eGFR NON AFRICAN AMERICAN > 90 mL/min (90-120)
[2019-11-28 05:44] LABS: ALT (SGPT) 80 U/L (10-68); CALC OSMOLALITY 280 mosm/kg (275-300); GLUCOSE 98 mg/dL (74-106)
[2019-11-28 05:49] LABS: BASOPHILS 0.6 % (0-2); EOSINOPHILS 4.1 % (0-7); HEMATOCRIT 36.5 % (42.0-54.0); HEMOGLOBIN 11.4 g/dL (13.5-17.5); IMMATURE GRANULOCYTES 0.2 % (0-5); LYMPHOCYTES 29.7 % (15-50); MCH 28.6 pg (26.0-34.0); MCHC 31.2 g/dL (31.0-37.0); MCV 91.7 fL (80.0-100.0); MEAN PLATELET VOLUME 9.3 fL (7.4-10.4); MONOCYTES 9.3 % (2-11); NEUTROPHILS 56.1 % (40-80); PLATELET COUNT 264 10x3/uL (130-400); RBC 3.98 10x6/uL (4.20-6.10); RDW 14.4 % (11.5-14.5); WBC 6.3 10x3/uL (4.8-10.8)
--- NOTE | 2019-11-28 07:52 | NUR ---
PATIENT LAYING IN BED ON LEFT SIDE, PATIENT HAD JUST HAD SHOWER THIS MORNING. NO S/SX OF DISTRESS, CL IN REACH CONTINUE WITH PLAN OF CARE
--- NOTE | 2019-11-28 11:43 | NUR ---
I have reviewed this patient and I concur with the Shift Assessment completed by the Licensed Practical Nurse today this shift.
[2019-11-29 04:12] VITALS: BP 100/63
[2019-11-29 05:22] LABS: BASOPHILS 0.7 % (0-2); EOSINOPHILS 5.8 % (0-7); HEMATOCRIT 35.2 % (42.0-54.0); HEMOGLOBIN 10.7 g/dL (13.5-17.5); IMMATURE GRANULOCYTES 0.2 % (0-5); LYMPHOCYTES 28.3 % (15-50); MCH 27.7 pg (26.0-34.0); MCHC 30.4 g/dL (31.0-37.0); MCV 91.2 fL (80.0-100.0); MEAN PLATELET VOLUME 9.1 fL (7.4-10.4); MONOCYTES 10.5 % (2-11); NEUTROPHILS 54.5 % (40-80); PLATELET COUNT 250 10x3/uL (130-400); RBC 3.86 10x6/uL (4.20-6.10); RDW 14.4 % (11.5-14.5); WBC 5.3 10x3/uL (4.8-10.8)
[2019-11-29 06:03] LABS: ALKALINE PHOSPHATASE 110 U/L (30-120); ALT (SGPT) 63 U/L (10-68); BILIRUBIN - TOTAL 0.11 mg/dL (0.2-1.3); CALCIUM 8.5 mg/dL (8.5-10.1); CARBON DIOXIDE 29.6 mmol/L (21.0-32.0); CHLORIDE - SERUM 110 mmol/L (98-107); GLUCOSE 95 mg/dL (74-106); POTASSIUM - SERUM 3.6 mmol/L (3.5-5.1); PROTEIN - SERUM 6.2 g/dL (6.4-8.2); SODIUM 145 mmol/L (136-145); eGFR NON AFRICAN AMERICAN 90 mL/min (90-120)
[2019-11-29 06:06] LABS: CALC OSMOLALITY 288 mosm/kg (275-300); UREA NITROGEN 12 mg/dL (7-18)
--- NOTE | 2019-11-29 07:52 | NUR ---
PATIENT LAYING IN BED STATED HE DOES NOT WANT TO BE HOOKED TO IV AND SHOULD BE GOING HOME TODAY, EXPLAINED THAT ORDERS FOR DC ARE NOT IN YET BUT WILL OBLIGE AND SL PATINET SO HE DOES NOT TAKE IV OUT. CL IN REACH, NO NEEDS VOICED, CONTINUE WITH PLAN OF CARE
[2019-11-29 08:13] LABS: PSA - % FREE 36.7 % (()); PSA - FREE 0.22 ng/mL; PSA - TOTAL 0.6 ng/mL (0.0-4.0)
[2019-11-29 08:55] VITALS: BP 120/76
--- NOTE | 2019-11-29 09:58 | NUR ---
PATIENT IS VERY ANXIOUS THIS MORNING, SATES THAT " A PREDITOR KEEPS CALLING MY AT HOME" EXPLAINED SURY TWHAT HAPPENS AT HOME WE ARE UNABLE TO HANDLE, PT ASKED FOR ANXIETY MEDICATION. ADMINISTERED PRN MEDICATION CONTINUE WITH PLAN OF CARE
[2019-11-29] MEDS ORDERED: ELIQUIS5 MG PO (10:30)
[2019-11-29 11:11] LABS: ACLA - IGG AB <9 GPL U/mL (0-14); ACLA - IGM AB <9 MPL U/mL (0-12)
--- NOTE | 2019-11-29 11:47 | MORECARE ---
CASE MANAGEMENT DISCHARGE SUMMARY PATIENT: BUTCH CHEUNG UNIT: [id number] ADM DATE: 11/26/19 AGE: 34 : 83 SEX: M ROOM/BED: D.2220 AUTHOR: GIANFRANCO SOSA PHYSICIAN: REFERRING PHYSICIAN: DEMETRIA EGAN MD DATE OF SERVICE: 11/29/19 Discharge Plan Patient Name: BUTCH CHEUNG Facility: [facility]:[place] : 1985 Planned Disposition: Home Anticipated Discharge Date: Discharge Date: Expected LOS: Initial Reviewer: [email or web address] Initial Review Date: 11/26/2019 Generated: 11/29/19 12:47 pm Patient Name: BUTCH CHEUNG Page [id number] at 1147 All edits/amendments must be made on the electronic document DICTATION DATE: 11/29/19 1147 BREAKFAST BAR ATTENDANT: SOLOMON 11/29/19 1147 RPT#: [id number] DC DATE: STATUS: ADM IN [facility] [address] [place] [address] END OF REPORT
--- NOTE | 2019-11-29 12:02 | MORECARE ---
CASE MANAGEMENT DISCHARGE SUMMARY PATIENT: BUTCH CHEUNG UNIT: [id number] ADM DATE: 11/26/19 AGE: 34 : 83 SEX: M ROOM/BED: D.2220 AUTHOR: GIANFRANCO SOSA PHYSICIAN: REFERRING PHYSICIAN: DEMETRIA EGAN MD DATE OF SERVICE: 11/29/19 Discharge Plan Patient Name: BUTCH CHEUNG [facility] [facility] 1985 Planned Disposition: Home Anticipated Discharge Date: Discharge Date: Expected LOS: Initial Reviewer: [email or web address] Initial Review Date: 11/26/2019 Generated: 11/29/19 1:02 pm Last DP export: 11/29/19 10:47 a Patient Name: BUTCH CHEUNG Page [id number] at 1202 All edits/amendments must be made on the electronic document DICTATION DATE: 11/29/19 1202 THERMAL MOLDER: SOLOMON 11/29/19 1202 RPT#: [id number] DC DATE: STATUS: ADM IN [facility] [address] [place] [address] END OF REPORT
--- NOTE | 2019-11-29 12:11 | MORECARE ---
CASE MANAGEMENT DISCHARGE SUMMARY PATIENT: BUTCH CHEUNG UNIT: [id number] ADM DATE: 11/26/19 AGE: 34 : 83 SEX: M ROOM/BED: D.2220 AUTHOR: GIANFRANCO SOSA PHYSICIAN: REFERRING PHYSICIAN: DEMETRIA EGAN MD DATE OF SERVICE: 11/29/19 Discharge Plan Patient Name: BUTCH CHEUNG Facility: [facility]:[place] : 1985 Planned Disposition: Home Anticipated Discharge Date: Discharge Date: Expected LOS: Initial Reviewer: [email or web address] Initial Review Date: 11/26/2019 Generated: 11/29/19 1:11 pm Comments DCP- Discharge Planning Updated by [email or web address]: Sue Puga on 11/29/19 11:[address] CM MET WITH PATIENT RIHGT BEFORE DISCHARGE. HIS FIANCEE WILL BE HIS NURSING ATTENDANT HOME. HE IS CONCERNED ABOUT NEED O2, HE WAS NOT ON ANY O2 WHEN I WAS IN THE ROOM. HIS POX WAS 98 % ON ROOM AIR. HE ALSO QUESTIONED A NEBULIZER, I EXPLAINED TO HIM THAT HE NEEDED TO BRING THIS UP WITH HIS PCP ON HIS FOLLOW UP APPOINTMENT. (YAS[facility]Y AT [facility] IN [place]) CORY WILL BE HIS NURSING ATTENDANT HOME. HE STATES THAT HE FEELS SAFE DISCHARGING HOME. CM TO FOLLOW NEEDED Last DP export: 11/29/19 11:02 a Patient Name: BUTCH CHEUNG Page [phone] at 1211 All edits/amendments must be made on the electronic document DICTATION DATE: 11/29/19 1211 FIBROUS WALLBOARD INSPECTOR: SOLOMON 11/29/19 1211 RPT#: [id number] DC DATE: STATUS: ADM IN [place] [address] [place] [address] END OF REPORT
[2019-11-29 14:11] LABS: CEA 1.3 ng/mL (0.0-4.7)
--- NOTE | 2019-11-29 16:40 | MORECARE ---
CASE MANAGEMENT DISCHARGE SUMMARY PATIENT: BUTCH CHEUNG UNIT: [id number] ADM DATE: 11/26/19 AGE: 34 : 83 SEX: M ROOM/BED: D.2220 AUTHOR: GIANFRANCO SOSA PHYSICIAN: REFERRING PHYSICIAN: DEMETRIA EGAN MD DATE OF SERVICE: 11/29/19 Discharge Plan Patient Name: BUTCH CHEUNG Facility: [facility]:[place] : 1985 Planned Disposition: Home Anticipated Discharge Date: Discharge Date: 11/29/2019 Expected LOS: Initial Reviewer: [email or web address] Initial Review Date: 11/26/2019 Generated: 11/29/19 5:40 pm Comments DCP- Discharge Planning Updated by [email or web address]: Sue Puga on 11/29/19 11:[address] CM MET WITH PATIENT RIHGT BEFORE DISCHARGE. HIS FIANCEE WILL BE HIS RN GYN HOME. HE IS CONCERNED ABOUT NEED O2, HE WAS NOT ON ANY O2 WHEN I WAS IN THE ROOM. HIS POX WAS 98 % ON ROOM AIR. HE ALSO QUESTIONED A NEBULIZER, I EXPLAINED TO HIM THAT HE NEEDED TO BRING THIS UP WITH HIS PCP ON HIS FOLLOW UP APPOINTMENT. (YASMANY AT [facility] IN [place]) CORY WILL BE HIS RN GYN HOME. HE STATES THAT HE FEELS SAFE DISCHARGING HOME. CM TO FOLLOW NEEDED Last DP export: 11/29/19 11:11 a Patient Name: BUTCH CHEUNG Page [id number] at 1640 All edits/amendments must be made on the electronic document DICTATION DATE: 11/29/19 1640 LANGUAGE PATHOLOGIST: SOLOMON 11/29/19 1640 RPT#: [id number] DC DATE:11/29/19 STATUS: DIS IN [place] [id number] [place] [address] END OF REPORT
[2019-11-30 12:11] LABS: LUPUS - INTERPRETATION Comment: (()); LUPUS - THROMBIN TIME 26.2 sec (0.0-23.0); LUPUS - dRVVT 37.9 sec (0.0-47.0); PTT-LA 49.9 sec (0.0-51.9)
[2019-11-30 14:11] LABS: PROTEIN S - FREE 154 % (57-157); PROTEIN S - FUNCTIONAL 105 % (63-140); PROTEIN S - TOTAL 110 % (60-150)
[2019-11-30] MEDS ORDERED: ULTRAM50 MG PO (18:28)
== END 2019-11-29 12:20 | disposition home or self-care (01) | DRG 176 ==
LOC: D.ER 10:50 → D.MS 22:12
PROVIDERS: Emergency Medicine; Family Medicine; Internal Medicine Hematology & Oncology; ADMIT Family Medicine; ATTEND Family Medicine
DX: I26.99 Other pulmonary embolism without acute cor pulmonale (principal); E11.65 Type 2 diabetes mellitus with hyperglycemia; G40.909 Epilepsy, unspecified, not intractable, without status epilepticus; K21.9 Gastro-esophageal reflux disease without esophagitis; D64.9 Anemia, unspecified; I10 Essential (primary) hypertension; J45.909 Unspecified asthma, uncomplicated; F43.10 Post-traumatic stress disorder, unspecified; R07.89 Other chest pain; R06.00 Dyspnea, unspecified; R55 Syncope and collapse; F17.200 Nicotine dependence, unspecified, uncomplicated

== ENCOUNTER 2019-11-30 16:50 | Emergency (ER) | payer OTHER ==
[~2019-11-30] VITALS: Ht 182.9 cm; Wt 87.2 kg
[~2019-11-30 16:50] MED LIST changes: +BUSPIRONE HCL30 MG PO; +CLINDAMYCIN HC300 MG PO; +ELIQUIS5 MG PO
[2019-11-30 17:11] VITALS: Ht 182.9 cm; Wt 87.2 kg
[2019-11-30] MEDS ORDERED: ULTRAM50 MG PO (18:28)
[2019-11-30 19:14] VITALS: BP 116/68
== END 2019-11-30 19:14 | disposition home or self-care (01) ==
LOC: D.ER 16:50
DX: I26.99 Other pulmonary embolism without acute cor pulmonale (principal); R07.89 Other chest pain; R51 Headache; I10 Essential (primary) hypertension; J45.909 Unspecified asthma, uncomplicated; K21.9 Gastro-esophageal reflux disease without esophagitis

== ENCOUNTER 2019-12-16 09:13 | Emergency (ER) | payer OTHER ==
[~2019-12-16] VITALS: Ht 182.9 cm; Wt 68.2 kg
[2019-12-16 09:33] VITALS: Ht 182.9 cm; Wt 68.2 kg
[2019-12-16] MEDS ORDERED: CLARITIN 10 MG10 MG PO (10:08)
[2019-12-16] MEDS ORDERED: STERAPRED DS 1010 MG PO (10:08)
[2019-12-16 10:15] VITALS: BP 122/70
[2019-12-17] MEDS ORDERED: LEVSIN/ANASP0.125 MG PO (15:10)
[2019-12-17] MEDS ORDERED: PROTONIX40 MG PO (15:10)
[2019-12-17] MEDS ORDERED: ZOFRAN ODT4 MG/UDTAB PO (15:10)
== END 2019-12-16 10:16 | disposition home or self-care (01) ==
LOC: D.ER 09:13
DX: H65.01 Acute serous otitis media, right ear (principal); J06.9 Acute upper respiratory infection, unspecified; T85.698A Other mechanical complication of other specified internal prosthetic devices, implants and grafts, initial encounter; I10 Essential (primary) hypertension; J45.909 Unspecified asthma, uncomplicated; K21.9 Gastro-esophageal reflux disease without esophagitis

== ENCOUNTER 2019-12-17 11:37 | Emergency (ER) | payer OTHER ==
[~2019-12-17 11:37] MED LIST changes: +CLARITIN 10 MG10 MG PO; +STERAPRED DS 1010 MG PO
[2019-12-17 11:45] VITALS: BP 144/80; Ht 182.9 cm
[2019-12-17 12:14] LABS: BILIRUBIN NEGATIVE (NEGATIVE); KETONE NEGATIVE (NEGATIVE); NITRITE NEGATIVE (NEGATIVE); UROBILINOGEN NORMAL mg/dL (< 2)
[2019-12-17 12:57] LABS: BASOPHILS 0.5 % (0-2); EOSINOPHILS 5.6 % (0-7); HEMATOCRIT 39.3 % (42.0-54.0); HEMOGLOBIN 12.2 g/dL (13.5-17.5); IMMATURE GRANULOCYTES 0.3 % (0-5); LYMPHOCYTES 18.9 % (15-50); MCH 28.1 pg (26.0-34.0); MCV 90.6 fL (80.0-100.0); MEAN PLATELET VOLUME 8.6 fL (7.4-10.4); MONOCYTES 6.1 % (2-11); NEUTROPHILS 68.6 % (40-80); PLATELET COUNT 276 10x3/uL (130-400); RBC 4.34 10x6/uL (4.20-6.10); RDW 14.4 % (11.5-14.5); WBC 7.5 10x3/uL (4.8-10.8)
[2019-12-17 13:08] LABS: APTT 28.5 SECONDS (22.8-39.4); INR 0.99 (0.85-1.17); PROTIME 13.1 SECONDS (11.6-15.0)
[2019-12-17 13:09] LABS: CALC OSMOLALITY 274 mosm/kg (275-300); CALCIUM 8.9 mg/dL (8.5-10.1); CARBON DIOXIDE 27.9 mmol/L (21.0-32.0); CHLORIDE - SERUM 105 mmol/L (98-107); CREATININE - SERUM 1.1 mg/dL (0.6-1.3); GLUCOSE 87 mg/dL (74-106); POTASSIUM - SERUM 3.7 mmol/L (3.5-5.1); SODIUM 138 mmol/L (136-145); UREA NITROGEN 12 mg/dL (7-18); eGFR NON AFRICAN AMERICAN 80 mL/min (90-120)
[2019-12-17 13:18] LABS: ALBUMIN 4.3 g/dL (3.4-5.0); ALKALINE PHOSPHATASE 108 U/L (30-120); ALT (SGPT) 33 U/L (10-68); AMYLASE - SERUM 106 U/L (25-115); BILIRUBIN - TOTAL 0.38 mg/dL (0.2-1.3); LIPASE 196 U/L (73-393); PROTEIN - SERUM 7.7 g/dL (6.4-8.2)
[2019-12-17 13:19] LABS: TROPONIN-I < 0.017 ng/mL (0.000-0.060)
[2019-12-17] MEDS ORDERED: PROTONIX40 MG PO (15:10)
[2019-12-17] MEDS ORDERED: ZOFRAN ODT4 MG/UDTAB PO (15:10)
[2019-12-17] MEDS ORDERED: LEVSIN/ANASP0.125 MG PO (15:10)
== END 2019-12-17 16:02 | disposition home or self-care (01) ==
LOC: D.ER 11:37
PROVIDERS: Family Medicine
DX: R10.9 Unspecified abdominal pain (principal); R51.9 Headache, unspecified; W19.XXXA Unspecified fall, initial encounter; Y93.9 Activity, unspecified; Y92.9 Unspecified place or not applicable; R55 Syncope and collapse; I10 Essential (primary) hypertension; J45.909 Unspecified asthma, uncomplicated; K21.9 Gastro-esophageal reflux disease without esophagitis

== ENCOUNTER 2020-05-30 14:05 | Emergency (ER) | payer OTHER ==
[~2020-05-30] VITALS: Ht 182.9 cm; Wt 96.8 kg
[~2020-05-30 14:05] MED LIST changes: +FLORASTOR250 MG PO; +INVEGA 3 MG ER T3 MG PO; +LEVSIN/ANASP0.125 MG PO; +PROTONIX40 MG PO; +TEGRETOL 100 M100 MG PO; +TOPAMAX50 MG; +VISTARIL25 MG PO
[2020-05-30 14:24] VITALS: Ht 182.9 cm; Wt 96.8 kg
[2020-05-30] MEDS ORDERED: ZPAK PO (16:00)
[2020-05-30] MEDS ORDERED: PROAIR HFA8.5 G1 INH (16:00)
[2020-05-30 16:13] VITALS: BP 126/80
== END 2020-05-30 16:14 | disposition home or self-care (01) ==
LOC: D.ER 14:05
DX: J40 Bronchitis, not specified as acute or chronic (principal); R05 Cough; F12.10 Cannabis abuse, uncomplicated; F17.200 Nicotine dependence, unspecified, uncomplicated

== ENCOUNTER 2020-05-31 14:39 | Emergency (ER) | payer OTHER ==
[~2020-05-31] VITALS: Ht 182.9 cm; Wt 97.7 kg
[~2020-05-31 14:39] MED LIST changes: +PROAIR HFA8.5 G1 INH; +ZPAK PO
[2020-05-31 14:47] VITALS: BP 123/86; Ht 182.9 cm; Wt 97.7 kg
[2020-05-31 15:29] LABS: BILIRUBIN NEGATIVE (NEGATIVE); KETONE NEGATIVE (NEGATIVE); NITRITE NEGATIVE (NEGATIVE); UROBILINOGEN NORMAL mg/dL (< 2)
[2020-05-31 15:37] LABS: UDS - AMPHET NEGATIVE QUAL (NEGATIVE); UDS - BARB NEGATIVE QUAL (NEGATIVE); UDS - BENZO NEGATIVE QUAL (NEGATIVE); UDS - COCAINE NEGATIVE QUAL (NEGATIVE); UDS - OPIATE NEGATIVE QUAL (NEGATIVE); UDS - PCP NEGATIVE QUAL (NEGATIVE); UDS - THC NEGATIVE QUAL (NEGATIVE)
[2020-05-31 15:54] LABS: CALC OSMOLALITY 285 mosm/kg (275-300); CALCIUM 8.4 mg/dL (8.5-10.1); CARBON DIOXIDE 21.7 mmol/L (21.0-32.0); CHLORIDE - SERUM 107 mmol/L (98-107); CREATININE - SERUM 1.3 mg/dL (0.6-1.3); POTASSIUM - SERUM 3.8 mmol/L (3.5-5.1); SODIUM 142 mmol/L (136-145); UREA NITROGEN 14 mg/dL (7-18); eGFR NON AFRICAN AMERICAN 66 mL/min (90-120)
[2020-05-31 15:57] LABS: BASOPHILS 0.5 % (0-2); GLUCOSE 142 mg/dL (74-106); HEMOGLOBIN 11.9 g/dL (13.5-17.5); IMMATURE GRANULOCYTES 0.3 % (0-5); LYMPHOCYTE ABS# 1.55 10x3/uL (1.32-3.57); LYMPHOCYTES 26.1 % (15-50); MCHC 33.1 g/dL (31.0-37.0); MCV 87.8 fL (80.0-100.0); MEAN PLATELET VOLUME 8.4 fL (7.4-10.4); MONOCYTES 6.7 % (2-11); NEUTROPHIL ABS# 3.65 10x3/uL (1.78-5.38); NEUTROPHILS 61.4 % (40-80); PLATELET COUNT 301 10x3/uL (130-400); RDW 18.4 % (11.5-14.5)
[2020-05-31 16:01] LABS: ALBUMIN 3.7 g/dL (3.4-5.0); ALKALINE PHOSPHATASE 103 U/L (30-120); ALT (SGPT) 29 U/L (10-68); BILIRUBIN - TOTAL 0.12 mg/dL (0.2-1.3); CARBAMAZEPINE (TEGRETOL) 9.1 ug/mL (4.0-12.0); MAGNESIUM - SERUM 1.9 mg/dL (1.8-2.4)
[2020-05-31 16:04] LABS: ACETAMINOPHEN < 10.0 ug/mL (10.0-30.0)
[2020-05-31 16:05] LABS: ALCOHOL - BLOOD (MEDICAL) < 0.0 mg/dL (0.0-10.0)
== END 2020-05-31 16:34 | disposition home or self-care (01) ==
LOC: D.ER 14:39
PROVIDERS: Emergency Medicine
DX: R45.850 Homicidal ideations (principal); F41.9 Anxiety disorder, unspecified

== ENCOUNTER 2020-06-18 11:15 | Emergency (ER) | payer OTHER ==
[~2020-06-18] VITALS: Ht 182.9 cm; Wt 95.0 kg
[2020-06-18 11:22] VITALS: Ht 182.9 cm; Wt 95.0 kg
[2020-06-18 11:42] VITALS: BP 118/63
[2020-06-18 12:12] LABS: CALC OSMOLALITY 278 mosm/kg (275-300); CALCIUM 8.7 mg/dL (8.5-10.1); CARBON DIOXIDE 22.6 mmol/L (21.0-32.0); CHLORIDE - SERUM 108 mmol/L (98-107); CREATININE - SERUM 1.3 mg/dL (0.6-1.3); POTASSIUM - SERUM 3.9 mmol/L (3.5-5.1); SODIUM 141 mmol/L (136-145); UREA NITROGEN 11 mg/dL (7-18); eGFR NON AFRICAN AMERICAN 66 mL/min (90-120)
[2020-06-18 12:13] LABS: GLUCOSE 89 mg/dL (74-106)
[2020-06-18 12:15] LABS: BASOPHILS 0.3 % (0-2); EOSINOPHILS 2.5 % (0-7); HEMATOCRIT 40.4 % (42.0-54.0); IMMATURE GRANULOCYTES 0.3 % (0-5); LYMPHOCYTE ABS# 1.53 10x3/uL (1.32-3.57); LYMPHOCYTES 14.4 % (15-50); MCH 29.1 pg (26.0-34.0); MCHC 32.2 g/dL (31.0-37.0); MCV 90.4 fL (80.0-100.0); MEAN PLATELET VOLUME 9.2 fL (7.4-10.4); MONOCYTES 5.5 % (2-11); NEUTROPHIL ABS# 8.21 10x3/uL (1.78-5.38); PLATELET COUNT 344 10x3/uL (130-400); RBC 4.47 10x6/uL (4.20-6.10); RDW 17.4 % (11.5-14.5); WBC 10.7 10x3/uL (4.8-10.8)
[2020-06-18 12:27] LABS: ALBUMIN 3.9 g/dL (3.4-5.0); ALKALINE PHOSPHATASE 122 U/L (30-120); ALT (SGPT) 19 U/L (10-68); AMYLASE - SERUM 88 U/L (25-115); BILIRUBIN - TOTAL 0.14 mg/dL (0.2-1.3); CKMB 0.9 U/L (0.0-3.6); CREATINE KINASE 129 UL (21-232); LIPASE 181 U/L (73-393); PROTEIN - SERUM 7.5 g/dL (6.4-8.2); THYROID STIMULATING HORMONE 0.55 uIU/mL (0.36-3.74); TROPONIN-I < 0.017 ng/mL (0.000-0.060)
[2020-06-18 12:28] LABS: PRO BNP 8 pg/mL (0-125)
[2020-06-18 12:46] LABS: INFLUENZA TYPE A NEGATIVE (NEGATIVE); INFLUENZA TYPE B NEGATIVE (NEGATIVE); SARS-CoV-2 ANTIGEN NEGATIVE- SARS-COV-2 (NEGATIVE)
[2020-06-18 14:16] LABS: UDS - AMPHET NEGATIVE QUAL (NEGATIVE); UDS - BARB NEGATIVE QUAL (NEGATIVE); UDS - BENZO NEGATIVE QUAL (NEGATIVE); UDS - COCAINE NEGATIVE QUAL (NEGATIVE); UDS - OPIATE NEGATIVE QUAL (NEGATIVE); UDS - PCP NEGATIVE QUAL (NEGATIVE); UDS - THC NEGATIVE QUAL (NEGATIVE)
[2020-06-18 14:27] LABS: BILIRUBIN NEGATIVE (NEGATIVE); KETONE NEGATIVE (NEGATIVE); NITRITE NEGATIVE (NEGATIVE); UROBILINOGEN NORMAL mg/dL (< 2)
== END 2020-06-18 15:10 | disposition home or self-care (01) ==
LOC: D.ER 11:15
PROVIDERS: Emergency Medicine
DX: R19.7 Diarrhea, unspecified (principal); R51.9 Headache, unspecified; R53.83 Other fatigue

== ENCOUNTER 2020-06-21 10:51 | Emergency (ER) | payer OTHER ==
[~2020-06-21] VITALS: Ht 182.9 cm; Wt 88.6 kg
[2020-06-21 11:10] VITALS: BP 114/75; Ht 182.9 cm; Wt 88.6 kg
[2020-06-21 11:53] LABS: BASOPHILS 0.4 % (0-2); EOSINOPHILS 2.1 % (0-7); HEMATOCRIT 41.6 % (42.0-54.0); HEMOGLOBIN 13.2 g/dL (13.5-17.5); IMMATURE GRANULOCYTES 0.2 % (0-5); LYMPHOCYTE ABS# 1.38 10x3/uL (1.32-3.57); LYMPHOCYTES 10.1 % (15-50); MCHC 31.7 g/dL (31.0-37.0); MCV 91.4 fL (80.0-100.0); MEAN PLATELET VOLUME 9.1 fL (7.4-10.4); NEUTROPHIL ABS# 11.09 10x3/uL (1.78-5.38); NEUTROPHILS 81.2 % (40-80); PLATELET COUNT 349 10x3/uL (130-400); RBC 4.55 10x6/uL (4.20-6.10); WBC 13.7 10x3/uL (4.8-10.8)
[2020-06-21 11:57] LABS: APTT 28.2 SECONDS (22.8-39.4); INR 0.99 (0.85-1.17); PROTIME 12.1 SECONDS (11.6-15.0)
[2020-06-21 12:00] LABS: CALC OSMOLALITY 280 mosm/kg (275-300); CARBON DIOXIDE 22.3 mmol/L (21.0-32.0); CHLORIDE - SERUM 108 mmol/L (98-107); CREATININE - SERUM 1.1 mg/dL (0.6-1.3); GLUCOSE 84 mg/dL (74-106); POTASSIUM - SERUM 4.3 mmol/L (3.5-5.1); SODIUM 142 mmol/L (136-145); UREA NITROGEN 11 mg/dL (7-18); eGFR NON AFRICAN AMERICAN 80 mL/min (90-120)
[2020-06-21 12:07] LABS: ALBUMIN 4.1 g/dL (3.4-5.0); ALKALINE PHOSPHATASE 137 U/L (30-120); ALT (SGPT) 20 U/L (10-68); AMYLASE - SERUM 84 U/L (25-115); BILIRUBIN - TOTAL 0.19 mg/dL (0.2-1.3); LIPASE 147 U/L (73-393); PROTEIN - SERUM 7.5 g/dL (6.4-8.2)
[2020-06-21 15:14] LABS: CKMB 0.8 U/L (0.0-3.6); CREATINE KINASE 96 UL (21-232); TROPONIN-I < 0.017 ng/mL (0.000-0.060)
[2020-06-21] MEDS ORDERED: CARAFATE1 G PO (16:13)
[2020-06-21] MEDS ORDERED: PROTONIX40 MG PO (16:13)
== END 2020-06-21 16:21 | disposition home or self-care (01) ==
LOC: D.ER 10:51
PROVIDERS: Family Medicine
DX: R07.9 Chest pain, unspecified (principal); K29.70 Gastritis, unspecified, without bleeding; K44.9 Diaphragmatic hernia without obstruction or gangrene; R10.9 Unspecified abdominal pain; R11.10 Vomiting, unspecified

== ENCOUNTER 2020-06-24 18:44 | Emergency (ER) | payer OTHER ==
[~2020-06-24] VITALS: Ht 182.9 cm; Wt 81.8 kg
[2020-06-24 18:50] VITALS: BP 110/60; Ht 182.9 cm; Wt 81.8 kg
[2020-06-24 19:18] LABS: BASOPHILS 0.4 % (0-2); EOSINOPHILS 2.9 % (0-7); HEMATOCRIT 40.8 % (42.0-54.0); HEMOGLOBIN 13.1 g/dL (13.5-17.5); IMMATURE GRANULOCYTES 0.5 % (0-5); LYMPHOCYTE ABS# 1.96 10x3/uL (1.32-3.57); LYMPHOCYTES 22.9 % (15-50); MCHC 32.1 g/dL (31.0-37.0); MCV 90.5 fL (80.0-100.0); MONOCYTES 4.3 % (2-11); NEUTROPHIL ABS# 5.91 10x3/uL (1.78-5.38); PLATELET COUNT 331 10x3/uL (130-400); RBC 4.51 10x6/uL (4.20-6.10); RDW 16.5 % (11.5-14.5); WBC 8.6 10x3/uL (4.8-10.8)
[2020-06-24 19:42] LABS: CALC OSMOLALITY 279 mosm/kg (275-300); CALCIUM 8.8 mg/dL (8.5-10.1); CARBON DIOXIDE 24.7 mmol/L (21.0-32.0); CHLORIDE - SERUM 106 mmol/L (98-107); CREATININE - SERUM 1.2 mg/dL (0.6-1.3); GLUCOSE 95 mg/dL (74-106); POTASSIUM - SERUM 3.6 mmol/L (3.5-5.1); SODIUM 141 mmol/L (136-145); UREA NITROGEN 10 mg/dL (7-18); eGFR NON AFRICAN AMERICAN 73 mL/min (90-120)
[2020-06-24 19:51] LABS: NITRITE NEGATIVE (NEGATIVE)
[2020-06-24 19:51] LABS: ALKALINE PHOSPHATASE 137 U/L (30-120); ALT (SGPT) 19 U/L (10-68); AMYLASE - SERUM 92 U/L (25-115); BILIRUBIN - TOTAL 0.22 mg/dL (0.2-1.3); LIPASE 165 U/L (73-393); PROTEIN - SERUM 7.7 g/dL (6.4-8.2)
[2020-06-24 19:52] LABS: BILIRUBIN NEGATIVE (NEGATIVE); KETONE NEGATIVE (NEGATIVE); UROBILINOGEN NORMAL mg/dL (< 2)
[2020-06-24 19:53] LABS: TROPONIN-I < 0.017 ng/mL (0.000-0.060)
== END 2020-06-24 21:40 | disposition left against medical advice (07) ==
LOC: D.ER 18:44
PROVIDERS: Emergency Medicine
DX: R10.9 Unspecified abdominal pain (principal); Z53.29 Procedure and treatment not carried out because of patient's decision for other reasons; Z76.5 Malingerer [conscious simulation]; R11.2 Nausea with vomiting, unspecified

== ENCOUNTER 2020-07-03 07:56 | Emergency (ER) | payer OTHER ==
[~2020-07-03] VITALS: Ht 182.9 cm; Wt 90.9 kg
[2020-07-03 08:00] VITALS: BP 126/78; Ht 182.9 cm; Wt 90.9 kg
[2020-07-03] MEDS ORDERED: REGLAN10 MG PO (08:22)
[2020-07-03 08:47] LABS: BASOPHILS 0.6 % (0-2); EOSINOPHILS 8.1 % (0-7); HEMATOCRIT 39.8 % (42.0-54.0); IMMATURE GRANULOCYTES 0.4 % (0-5); LYMPHOCYTE ABS# 1.57 10x3/uL (1.32-3.57); LYMPHOCYTES 33.5 % (15-50); MCH 29.1 pg (26.0-34.0); MCHC 32.7 g/dL (31.0-37.0); MCV 89.2 fL (80.0-100.0); MEAN PLATELET VOLUME 8.9 fL (7.4-10.4); MONOCYTES 7.9 % (2-11); NEUTROPHIL ABS# 2.31 10x3/uL (1.78-5.38); NEUTROPHILS 49.5 % (40-80); PLATELET COUNT 313 10x3/uL (130-400); RBC 4.46 10x6/uL (4.20-6.10); RDW 16.2 % (11.5-14.5); WBC 4.7 10x3/uL (4.8-10.8)
[2020-07-03 08:54] LABS: ANION GAP 13.1 mmol/L (8-16); CALCIUM 8.6 mg/dL (8.5-10.1); CARBON DIOXIDE 23.5 mmol/L (21.0-32.0); CREATININE - SERUM 1.3 mg/dL (0.6-1.3); POTASSIUM - SERUM 3.6 mmol/L (3.5-5.1)
[2020-07-03 09:00] LABS: ALBUMIN 3.6 g/dL (3.4-5.0); BILIRUBIN - TOTAL 0.14 mg/dL (0.2-1.3)
== END 2020-07-03 11:09 | disposition home or self-care (01) ==
LOC: D.ER 07:56
PROVIDERS: Family Medicine
DX: K21.9 Gastro-esophageal reflux disease without esophagitis (principal); R11.2 Nausea with vomiting, unspecified

== ENCOUNTER 2020-07-16 09:42 | Emergency (ER) | payer OTHER ==
[~2020-07-16] VITALS: Ht 182.9 cm; Wt 92.7 kg
[~2020-07-16 09:42] MED LIST changes: +REGLAN10 MG PO
[2020-07-16 09:45] VITALS: BP 122/83; Ht 182.9 cm; Wt 92.7 kg
[2020-07-16 10:05] LABS: BASOPHILS 0.4 % (0-2); EOSINOPHILS 5.8 % (0-7); HEMATOCRIT 40.8 % (42.0-54.0); HEMOGLOBIN 13.3 g/dL (13.5-17.5); IMMATURE GRANULOCYTES 0.2 % (0-5); LYMPHOCYTE ABS# 1.69 10x3/uL (1.32-3.57); LYMPHOCYTES 17.5 % (15-50); MCH 29.2 pg (26.0-34.0); MCHC 32.6 g/dL (31.0-37.0); MCV 89.7 fL (80.0-100.0); MONOCYTES 11.9 % (2-11); NEUTROPHIL ABS# 6.18 10x3/uL (1.78-5.38); NEUTROPHILS 64.2 % (40-80); PLATELET COUNT 284 10x3/uL (130-400); RBC 4.55 10x6/uL (4.20-6.10); RDW 15.9 % (11.5-14.5); WBC 9.6 10x3/uL (4.8-10.8)
[2020-07-16 10:18] LABS: CALC OSMOLALITY 279 mosm/kg (275-300); CALCIUM 9.1 mg/dL (8.5-10.1); CARBON DIOXIDE 24.3 mmol/L (21.0-32.0); CHLORIDE - SERUM 107 mmol/L (98-107); CREATININE - SERUM 1.3 mg/dL (0.6-1.3); GLUCOSE 79 mg/dL (74-106); POTASSIUM - SERUM 3.5 mmol/L (3.5-5.1); SODIUM 141 mmol/L (136-145); UREA NITROGEN 12 mg/dL (7-18); eGFR NON AFRICAN AMERICAN 66 mL/min (90-120)
[2020-07-16 10:27] LABS: ALBUMIN 3.7 g/dL (3.4-5.0); ALKALINE PHOSPHATASE 102 U/L (30-120); ALT (SGPT) 27 U/L (10-68); AMYLASE - SERUM 88 U/L (25-115); BILIRUBIN - TOTAL 0.12 mg/dL (0.2-1.3); LIPASE 203 U/L (73-393); PROTEIN - SERUM 7.6 g/dL (6.4-8.2); TROPONIN-I < 0.017 ng/mL (0.000-0.060)
[2020-07-16 10:34] LABS: BILIRUBIN NEGATIVE (NEGATIVE); KETONE NEGATIVE (NEGATIVE); NITRITE NEGATIVE (NEGATIVE); UROBILINOGEN NORMAL mg/dL (< 2)
== END 2020-07-16 11:37 | disposition home or self-care (01) ==
LOC: D.ER 09:42
PROVIDERS: Family Medicine
DX: R53.81 Other malaise (principal)

== ENCOUNTER 2020-08-10 09:07 | Emergency (ER) | payer OTHER ==
[~2020-08-10] VITALS: Ht 182.9 cm; Wt 90.9 kg
[2020-08-10 09:10] VITALS: Ht 182.9 cm; Wt 90.9 kg
[2020-08-10] MEDS ORDERED: PROMETHAZINE W473 ML PO (10:27)
[2020-08-10] MEDS ORDERED: LEVOFLOXACIN500 MG PO (10:27)
[2020-08-10] MEDS ORDERED: STERAPRED 5MG 65 M1 PO (10:27)
[2020-08-10 10:43] VITALS: BP 99/72
== END 2020-08-10 10:45 | disposition home or self-care (01) ==
LOC: D.ER 09:07
DX: J20.9 Acute bronchitis, unspecified (principal); Z72.0 Tobacco use

== ENCOUNTER 2020-08-17 13:12 | Emergency (ER) | payer OTHER ==
[~2020-08-17] VITALS: Ht 182.9 cm; Wt 91.8 kg
[~2020-08-17 13:12] MED LIST changes: +LEVOFLOXACIN500 MG PO; +PROMETHAZINE W473 ML PO; +STERAPRED 5MG 65 M1 PO
[2020-08-17 13:29] VITALS: Ht 182.9 cm; Wt 91.8 kg
[2020-08-17 14:18] LABS: BACTERIA FEW HPF (<MOD); BILIRUBIN NEGATIVE (NEGATIVE); KETONE NEGATIVE mg/dL (< 1+); NITRITE NEGATIVE (NEGATIVE); PH 6.5 (5.0-8.0); SQUAMOUS EPITHELIAL <1 HPF (0-4); UROBILINOGEN NORMAL mg/dL (< 2); WHITE CELLS - URINE 1 HPF (0-1)
[2020-08-17] MEDS ORDERED: METHOCARBAMOL500 MG PO (15:32)
[2020-08-17] MEDS ORDERED: PREDNISONE50 MG PO (15:32)
[2020-08-17] MEDS ORDERED: CLOTRIMAZOLE TOPICAL (15:34)
[2020-08-17 16:05] VITALS: BP 148/62
== END 2020-08-17 16:07 | disposition home or self-care (01) ==
LOC: D.ER 13:12
PROVIDERS: Emergency Medicine
DX: M54.16 Radiculopathy, lumbar region (principal); B37.89 Other sites of candidiasis; M54.5 Low back pain; I25.2 Old myocardial infarction; Z72.0 Tobacco use

== ENCOUNTER 2020-09-05 16:00 | Emergency (ER) | payer OTHER ==
[~2020-09-05] VITALS: Ht 182.9 cm; Wt 91.4 kg
[~2020-09-05 16:00] MED LIST changes: +CLOTRIMAZOLE TOPICAL; +METHOCARBAMOL500 MG PO; +PREDNISONE50 MG PO
[2020-09-05 16:05] VITALS: BP 105/71; Ht 182.9 cm; Wt 91.4 kg
[2020-09-05] MEDS ORDERED: CYCLOBENZAPRINE10 MG PO (17:14)
[2020-09-05] MEDS ORDERED: ACETAMINOPHEN500 M1 PO (17:14)
== END 2020-09-05 18:53 | disposition home or self-care (01) ==
LOC: D.ER 16:00
DX: S60.221A Contusion of right hand, initial encounter (principal); M79.10 Myalgia, unspecified site; T14.8XXA Other injury of unspecified body region, initial encounter; I25.2 Old myocardial infarction; Z72.0 Tobacco use; W22.8XXA Striking against or struck by other objects, initial encounter; Y93.9 Activity, unspecified; Y92.9 Unspecified place or not applicable